=== PATIENT | female | born 1970 | race Caucasian/White ===

== ENCOUNTER 2024-03-10 15:45 | Inpatient (IN) | payer OTHER, SELFPAY ==
[2024-03-10 11:35] VITALS: BP 103/70
[2024-03-10 11:57] LABS: % Basophils 0.4 % (0-2); % Eosinophils 1.1 % (0-6); % Immature Granulocytes 0.3 % (0-0.5); % Lymphocytes 16.7 % (20.5-51.1); % Monocytes 4.7 % (1.7-9.3); % Neutrophils 76.8 % (42.2-75.2); Absolute Eosinophils 0.1 10^3/uL (0-0.7); Absolute Lymphocytes 1.6 10^3/uL (1.2-3.4); Absolute Monocytes 0.4 10^3/uL (0.1-0.6); Absolute Neutrophils 7.2 10^3/uL (1.4-6.5); Hematocrit 39.5 % (37.0-47.0); Hemoglobin 13.6 g/dL (12.0-16.0); Mean Corp Hgb Conc. 34.4 g/dL (33.0-37.0); Mean Corpuscular Hgb 30.4 pg (27.0-31.0); Mean Corpuscular Volume 88.2 fL (81.0-99.0); Mean Platelet Volume 8.9 fL (7.4-10.4); Nucleated Red Blood Cells % 0 %; Platelet Count 271 10^3/uL (130-400); Red Blood Cell Count 4.48 10^6/uL (4.20-5.40); Red Cell Dist. Width 12.4 % (11.5-14.5); White Blood Cell Count 9.4 10^3/uL (4.8-10.8)
[2024-03-10 12:11] LABS: ALT (SGPT) 77 U/L (0-35); APTT 24.3 Sec (23.4-35.0); AST (SGOT) 117 U/L (14-36); Albumin 4.3 g/dl (3.5-5.0); Alkaline Phosphatase 89 U/L (38-126); Blood Urea Nitrogen 12 mg/dl (7-17); Calcium 10.2 mg/dl (8.4-10.2); Carbon Dioxide 28 mmol/L (22-30); Chloride 102 mmol/L (98-107); Glucose 161 mg/dl (70-99); INR 0.89; Lipase 144 U/L (23-300); PT 12.6 Sec (11.4-14.6); Potassium 3.9 mmol/L (3.5-5.1); Sodium 141 mmol/L (135-145); Total Bilirubin 1.1 mg/dl (0.2-1.3); Total Protein 6.9 g/dl (6.3-8.2); eGFR > 60.00
[2024-03-10 12:22] LABS: Troponin I < 0.012 ng/ml
[2024-03-10 12:41] VITALS: BP 102/55
[2024-03-10 12:44] VITALS: BMI 29.2
[2024-03-10 13:00] VITALS: BP 113/67
--- NOTE | 2024-03-10 13:20 | ED.GENMED ---
History of Present Illness
General
Chief Complaint: Chest Pain
Time Seen by Provider: 03/10/24 12:40
History of Present Illness
History of Present Illness:
53-year-old female with history of GERD presenting to the emergency department for chest pain and upper abdominal pain. Patient reports symptoms since this morning. Does report 1 episode of vomiting. Pain is described as burning. Notes that she
has been taking a lot of ibuprofen because she recently had knee surgery. Denies any abdominal surgeries. Denies any alcohol usage. Denies fever. Denies any history of cardiac disease. Denies difficulty breathing. Denies complaints. She
has not tried any medications for her symptoms. Denies additional acute medical complaints
Past History
Past History
ED Past Medical History: Valvular disease (Mitral valve prolapse)
ED Past Surgical History: Appendectomy and (X2)
Social History
Tobacco: Non-smoker
Alcohol: None
Drug: None
Personal:
Living: with family
Employment: Employed
Family History
Family History: Other (Noncontributory)
Phy Exam
Physical Exam
Physical Exam:
General: Well-appearing, no clinical signs of dehydration, nontoxic and in no acute distress
HEENT: protecting airway
Neck: appears supple
CV: Normal heart rate, regular rhythm
Resp: No accessory muscle use, no increased work of breathing
Abd: Soft and non-distended, focal tenderness to the epigastric and right upper quadrant without rebound or guarding
Extremities: No deformities, no swelling, no erythema, pulses and sensation intact
Neuro: alert, no focal neurologic deficit
: deferred
Rectal: deferred
Psych: Normal affect
Skin: Intact
Scores
Heart Score for Chest Pain Patients
STEMI patient?: Not applicable
Course
Orders/Labs/Results
Orders:
Orders
03/10/24 11:34
Electrocardiogram (*1) Urgent
Reason for Study: Chest Pain
EKG- Treatment ONCE
03/10/24 11:45
Complete Blood Count/With Diff Urgent
Comprehensive Metabolic Panel Urgent
Lipase Urgent
Protime/PTT Urgent
Troponin I Urgent
03/10/24 13:09
Famotidine [Pepcid] 20 mg IV NOW STA
Ketorolac [Toradol] 15 mg IV NOW STA
Ondansetron Injectable [Zofran] 4 mg IV NOW STA
US Abdomen Complete/Upper Urgent
Comment:
Reason For Exam: RUQ pain
03/10/24 15:39
Admit/Transfer Patient As Directed
Co-Sign Provider:
Level of Care: Inpatient admission
Assign to:: Medical/Surgical
Physician / Group: brenton
Diagnosis: gallstones
Reason for Hospitalization: gallstones
Expected length of stay greater than two midnights?: Yes
ELOS- Estimated Length of Stay in days: 3
I certify the patient meets the requirements for IP care: Yes
PRN Pain Medication Management As Directed
May give lesser potent ordered pain med per pt: Yes
preference::
Protocol:: Medication orders for pain may be administered in a
manner that supports deferring to patient preference
when the pt is:
- Requesting an ordered lesser potent pain medication.
Least to most potent pain medications are defined
as: acetaminophen < NSAID < tramadol < opioids
(morphine, oxycodone, hydromorphone).
- Requesting a lesser dose of the same medication IF
ORDERED.
- Requesting a less intrusive route of administration
if both routes are prescribed by the provider (PO <
IV).
03/10/24 15:40
Code Status As Directed
Resuscitation Status: Full Code
03/10/24 17:30
0.9% Sodium Chloride 1000 ml [Nss] 1,000 ml IV 100 mls/hr
HYDROmorphone [Dilaudid] 0.5 mg IV Q4HPRN PRN
Ibuprofen [Motrin] 400 mg PO Q6HPRN PRN
Ondansetron Injectable [Zofran] 4 mg IV Q6HPRN PRN
03/10/24 17:30
SURGICAL CONSULT Routine
Consulting Provider: Giuseppe Aguilar
Was physician already notified: Yes
Activity As Directed
Activity Level: As Tolerated
Vital Signs As Directed
Frequency: Per unit guidelines
DX Deep Vein Thrombosis Video Routine
03/10/24 18:00
Enoxaparin Sodium [Lovenox] 40 mg SC QPM
03/11/24 06:43
Complete Blood Count/No Diff IN AM
Comprehensive Metabolic Panel IN AM
03/11/24 15:33
MR Abdomen W/o & W Contrast Urgent
Reason For Exam: elevated LFTs, abd pain, dilated bile duct, gallst
Recent pill cam endoscopy?: No
03/12/24 06:00
Complete Blood Count/No Diff IN AM
Comprehensive Metabolic Panel IN AM
03/13/24 06:00
Complete Blood Count/No Diff IN AM
Comprehensive Metabolic Panel IN AM
03/14/24 06:00
Complete Blood Count/No Diff IN AM
Comprehensive Metabolic Panel IN AM
03/15/24 06:00
Complete Blood Count/No Diff IN AM
Comprehensive Metabolic Panel IN AM
Abnormal Lab Results
03/10/24
11:45
Absolute Neuts (auto) 7.2 H 10^3/uL
(1.4-6.5)
Neutrophils % 76.8 H %
(42.2-75.2)
Lymphocytes % 16.7 L %
(20.5-51.1)
Glucose 161 H mg/dl
(70-99)
AST 117 H U/L
(14-36)
ALT 77 H U/L
(0-35)
03/10/24 11:45
03/10/24 11:45
Vital Signs
Initial and Last Documented VS:
Initial Vital Signs
Temp Pulse Resp BP Pulse Ox
98.2 F 77 18 103/70 99
03/10/24 11:35 03/10/24 11:35 03/10/24 11:35 03/10/24 11:35 03/10/24 11:35
Last Documented Vital Signs
Temp Pulse Resp BP Pulse Ox
98.6 F 79 18 123/66 97
03/12/24 03:22 03/12/24 03:22 03/12/24 03:22 03/12/24 03:22 03/12/24 03:22
MDM/Problems Addressed
MDM/Problems Addressed:
53-year-old female with history of GERD presenting for chest pain and upper abdominal pain since this morning. Vital signs on arrival are normal.
On exam, patient resting comfortably, no acute distress, nontoxic. Regarding component of chest pain, EKG obtained, nonischemic. Patient without significant cardiac risk factors, without present concern for ACS. Patient with reproducible pain to
the epigastric quadrant with more likely differentials of GERD versus gastritis versus cholelithiasis versus cholecystitis versus pancreatitis. She has had increased ibuprofen, which may be causing gastric inflammation. Patient had laboratory
analysis prior to my assessment, no leukocytosis, normal lipase. Patient does have a mild transaminitis, denies alcohol usage. This reason we will obtain right upper quadrant ultrasound imaging. Will administer Pepcid, Zofran
15:15 -patient is reporting some symptom improvement after therapeutics. Ultrasound shows gallstones with sludge, at this time concerning for acute cholecystitis. However there is also mention of dilated CBD. Cannot rule out choledocholithiasis.
Will plan for admission for MRCP and surgical consultation
*Critical Care Note
Total Time (30-74mins, 75-104mins- exclusive of procedures): Not Applicable
ED Attending Note
-
Portions of this chart may have been created with voice recognition software.� Occasional wrong word or��sound alike� substitutions may have occurred due to the inherent limitations of voice recognition software.
Discharge Plan
Departure
Patient Disposition: Admit
Date of Disposition: 03/10/24
Time of Disposition: 15:17
Presentation/result/management discussed w/ accepting MD/DO: Hospitalist
Patient with high blood pressure during this ER visit?: No
Condition: Good
Discharge Problem:
Cholelithiasis, Transaminitis
Interventions
Interventions:
*Risk Screen - Suicide Last Done: 03/10/24 11:35
*General Assessment Last Done: 03/10/24 11:35
*Neglect/Abuse Screening Last Done: 03/10/24 11:35
ED- Fall Risk Assessment Last Done: 03/10/24 12:44
*ED COVID-19 Vaccine History Last Done: 03/10/24 11:35
*Nursing Disposition Last Done: 03/10/24 17:38
ED- Cardiac Assessment Last Done: 03/10/24 12:44
Discharge Date and Time
Discharge Date/Time: 03/10/24 17:38
[2024-03-10] MEDS: ZOFRAN 4 MG IV (13:24)
[2024-03-10] MEDS: TORADOL 15 MG IV (13:24)
[2024-03-10] MEDS: PEPCID 20 MG IV (13:25)
--- NOTE | 2024-03-10 15:19 | HPS.HSE ---
Family Physician
-
Family Physician: Mc Chaparro MD
Chief Complaint
-
mid upper abdominal chest pain
History of Present Illness
53-year-old female with history of GERD presenting to the emergency department for midchest pain and upper abdominal pain since this morning.she vomited 3 times. she had couple loose stools as well. denied fever, chills, sob. denied dysuria or
hematuria.
US with the impression of biliary sludge and calculi. Transient positive sonographic Hernandes's sign, though without gallbladder wall thickening or pericholecystic fluid to confirm acute cholecystitis.
Mild distention of the common bile duct, 7 mm.
Fatty infiltration of liver.
Medical History
Past Medical History
Past Medical History: Reports None
Past Surgical History: Reports Other
Additional Past Surgical History:
right meniscus repair
Social History
Tobacco: Non-smoker
Drug: None
Living: With Family
Family History
Family History: Not pertinent
Allergies / Home Medications
Allergies reflects when Allergies were last updated in [facility].
Home Medications with original date entered in [facility]
Allergy/Medication List:
Allergies
Allergy/AdvReac Type Severity Reaction Status Date / Time
No Known Allergies Allergy Verified 08/03/20 19:34
Home Medications
multivitamin 1 ea PO DAILY 08/03/20
Review of Systems
-
Constitutional: Reports No Symptoms
EENT: Reports No Symptoms
Respiratory: Reports No Symptoms
Cardiac: Reports Chest Pain
Abdomen/GI: Reports Abdominal Pain
: Reports No Symptoms
Musculoskeletal: Reports No Symptoms
Skin: Reports No Symptoms
Neurological: Reports No Symptoms
Endocrine: Reports No Symptoms
Hematologic/Lymphatic: Reports No Symptoms
Psych: Reports No Symptoms
Physical Exam
Vital Signs
Vital Signs
Temp Pulse Resp BP Pulse Ox
98.2 F 84 16 113/67 99
03/10/24 11:35 03/10/24 13:30 03/10/24 13:30 03/10/24 13:00 03/10/24 13:30
Physical Exam
General: Well Developed, Well Nourished and No Apparent Distress
HEENT: NormoCephalic, Moist mucous membranes and Atraumatic
Respiratory: Clear
Cardiac: S1/S2 and Regular Rhythm; No Murmur or Rub
GI: Soft, Non Tender, Non Distended and Normal Bowel Sounds; No Organomegaly
Rectal: Deferred by Provider
Musculoskeletal: No Clubbing, No Cyanosis and No Edema
Skin: No Rash
Neuro: AO x 3 and Nonfocal/grossly intact
Psych: Calm
Laboratory Results
-
03/10/24 11:45
03/10/24 11:45
Laboratory Results
PT 12.6 Sec (11.4-14.6) 03/10/24 11:45
INR 0.89 03/10/24 11:45
APTT 24.3 Sec (23.4-35.0) 03/10/24 11:45
Total Bilirubin 1.1 mg/dl (0.2-1.3) 03/10/24 11:45
AST 117 U/L (14-36) H 03/10/24 11:45
ALT 77 U/L (0-35) H 03/10/24 11:45
Alkaline Phosphatase 89 U/L (38-126) 03/10/24 11:45
Troponin I < 0.012 ng/ml 03/10/24 11:45
Lipase 144 U/L (23-300) 03/10/24 11:45
Data Reviewed
-
Diagnostic Radiology: Report Reviewed by me
Lab Data: Labs Reviewed by me
Impression/Plan
-
# Upper abdominal pain/vomiting likely from gallstones
-AST 117, ALT 77
-Ultrasound biliary sludge and calculi. Transient positive sonographic Hernandes's sign, though without gallbladder wall thickening or pericholecystic fluid to confirm acute cholecystitis.Mild distention of the common bile duct, 7 mm.
Fatty infiltration of liver.
-MRCP
-Keep patient n.p.o.
-Trend LFTs
-fluids continued for hydration
-Dilaudid prn for pain
-Zofran prn for n/v
-surgery consulted
#DVT prophylaxis
-Lovenox
#CODE status
-full code
--- NOTE | 2024-03-10 15:36 | CON.GS ---
Medical History
-
Chief Complaint: Substernal chest pain, nausea vomiting
History of Present Illness:
Patient is a 53-year-old female who was in her usual baseline state of health until she awoke today and began noticing substernal chest discomfort that she thought was heartburn/indigestion. It continued to increase in severity and developed into a
bandlike chest pressure and tightness. She had some coffee but symptoms became worse. She observed them throughout the day but they persisted and she began to develop some abdominal discomfort and tenderness. After her son finished school she
came in for emergency department evaluation due to persistent symptoms. Rather immediately after presenting to the ER she developed acute onset of vomiting and associated abdominal pain.
After getting antiemetic, pain medicine and antacid she is feeling much better now.
No similar episodes in the past.
Past Medical History
Past Medical History: Other (Right knee meniscus tear, possible fracture; history of mitral valve prolapse)
Past Surgical History: Other (Appendectomy, x 2)
Social History
Tobacco: Non-Smoker
Alcohol: None
Personal:
Living: With Family
Employment: Employed
Family History
Family History: Reviewed & Not Pertinent
Allergies / Home Medications
Allergy/AdvReac Type Severity Reaction Status Date / Time
No Known Allergies Allergy Verified 08/03/20 19:34
�Medication �Instructions �Recorded �Confirmed �Type
multivitamin 1 ea PO DAILY 08/03/20 08/03/20 History
Review of Systems
-
History Source: Patient
All other systems: Negative unless noted
A 10 point review of systems was completed, and was negative except as per HPI.
Physical Exam
Vital Signs
Temp Pulse Resp BP Pulse Ox
98.2 F 84 16 113/67 99
03/10/24 11:35 03/10/24 13:30 03/10/24 13:30 03/10/24 13:00 03/10/24 13:30
03/09/24 03/10/24 03/11/24
06:59 06:59 06:59
Actual Weight 70 kg
Body Mass Index (BMI) 29.2
Lab Results
03/10/24 11:45
03/10/24 11:45
WBC 9.4 10^3/uL (4.8-10.8) 03/10/24 11:45
Hgb 13.6 g/dL (12.0-16.0) 03/10/24 11:45
Hct 39.5 % (37.0-47.0) 03/10/24 11:45
Plt Count 271 10^3/uL (130-400) 03/10/24 11:45
Abs Immat Gran (auto) 0.0 10^3/uL (0-0.05) 03/10/24 11:45
Neutrophils % 76.8 % (42.2-75.2) H 03/10/24 11:45
Physical Exam
General: Well Developed, Well Nourished, No Apparent Distress and Comfortable
HEENT: Normocephalic, Anicteric and Moist Mucous Membranes
Respiratory: Non Labored Respirations
Cardiac: Regular Rhythm
GI: Soft, Non Distended, Tender (Upper abdominal and central. No rebound, no rigidity, no guarding) and Other (Right lower quadrant appendectomy scar, scar)
Skin: Warm
Neuro: AO x 3
Psych: Calm
Data Reviewed
-
Ultrasound: Image Personally Visualized and interpreted, Report Reviewed by me, Discussed with Patient and Discussed with Family
Labs: Labs Reviewed by me, Discussed with Patient and Discussed with Family
Assessment / Plan
-
Assessment: 53-year-old female with suspected acute biliary colic, possible acute cholecystitis; dilated common bile duct on ultrasound imaging with elevated AST and ALT.
Patient history ultrasound imaging results differential diagnosis as listed above and additional possible choledocholithiasis.
Given biliary ductal dilation and mild elevation of LFTs recommended obtaining MRI imaging to evaluate for choledocholithiasis
We discussed typical pathophysiology of gallstone mediated disease and indications for cholecystectomy as well as treatment of choledocholithiasis if identified on MR imaging.
Plan: Urgent MRI ordered as results this evening would facilitate timing of treatment plan
Hospice evaluating for admission
Would cover biliary source empirically with antibiotics
Further surgical recommendations pending MRI results
--- NOTE | 2024-03-10 16:35 | W.PN.UPDATE ---
Update Note
Progress Note Update
This is an addendum to the H&P written by Allyssa Marroquin on 03/10/2024. Patient seen and examined independently with [employer] INS[employer].
53-year-old female past medical history of asthma, GERD presenting with epigastric pain later with right upper quadrant and left upper quadrant pain and vomiting earlier today.
Labs show mild transaminitis. Abdominal ultrasound shows biliary sludge and calculi. There is transient positive sonographic Hernandes sign.
Concern for possible cholecystitis versus choledocholithiasis. N.p.o. Zosyn. Pain control/nausea control. General surgery consulted. Check MRCP.
[2024-03-10 17:43] VITALS: BP 126/72
[2024-03-10] MEDS: LOVENOX 40 MG SC (18:05)
[2024-03-10] MEDS: ZOSYN 50 IV ×2 (18:05→23:02)
[2024-03-10] MEDS: NSS 1000 IV (18:05)
[2024-03-10 23:33] VITALS: BP 134/75
[2024-03-11] VITALS (12 sets, daily range): BP systolic 0–143; BP diastolic 65–80
[2024-03-11] MEDS: DILAUDID 0.5 MG IV ×4 (01:11→21:30)
[2024-03-11] MEDS: NSS 1000 IV (04:45)
[2024-03-11] MEDS: ZOSYN 50 IV ×4 (05:38→23:36)
[2024-03-11 07:10] LABS: Hematocrit 40.1 % (37.0-47.0); Hemoglobin 13.3 g/dL (12.0-16.0); Mean Corp Hgb Conc. 33.2 g/dL (33.0-37.0); Mean Corpuscular Hgb 30.4 pg (27.0-31.0); Mean Corpuscular Volume 91.6 fL (81.0-99.0); Platelet Count 258 10^3/uL (130-400); Red Blood Cell Count 4.38 10^6/uL (4.20-5.40); Red Cell Dist. Width 12.7 % (11.5-14.5); White Blood Cell Count 5.4 10^3/uL (4.8-10.8)
[2024-03-11 08:00] LABS: ALT (SGPT) 360 U/L (0-35); AST (SGOT) 276 U/L (14-36); Albumin 4.2 g/dl (3.5-5.0); Alkaline Phosphatase 98 U/L (38-126); Blood Urea Nitrogen 10 mg/dl (7-17); Calcium 9.2 mg/dl (8.4-10.2); Carbon Dioxide 29 mmol/L (22-30); Chloride 103 mmol/L (98-107); Estimated Creatinine Clearance 74 ml/min; Glucose 90 mg/dl (70-99); Potassium 3.7 mmol/L (3.5-5.1); Sodium 141 mmol/L (135-145); Total Bilirubin 1.3 mg/dl (0.2-1.3); Total Protein 6.7 g/dl (6.3-8.2); eGFR > 60.00
[2024-03-11] MEDS: ZOFRAN 4 MG IV (08:19)
--- NOTE | 2024-03-11 08:21 | W.PN.GS2 ---
Addendum entered and electronically signed by Giuseppe Aguilar MD 03/11/24 14:45:
Patient seen and examined in follow-up with MANAGER [employer]. Agree with documented progress note.
Continues with right upper quadrant tenderness but nausea has subsided.
AFVSS
NAD AAOx3
ABD: Soft, tenderness palpation epigastrium right upper quadrant with voluntary guarding
MRI completed. Images personally reviewed as well as radiologist report. Cholelithiasis, sludge, gallbladder distention and edema with wall thickening. All consistent with acute calculus cholecystitis. Possible stones or small stones in common
bile duct.
Assessment/plan: 53-year-old female with acute calculus cholecystitis and possible choledocholithiasis
Given gallbladder distention and inflammatory changes and persistent right upper quadrant pain recommended pursuing laparoscopic cholecystectomy for definitive management of gallbladder with intraoperative cholangiogram as if there is only sludge or
tiny stones they may flush out with cholangiography.
Anticipated operative procedure was fully reviewed in detail the patient preoperatively obtaining written informed consent
Original Note:
Today's Communication / Plan
-
MRCP
Assessment / Plan
-
53 yo female with biliary colic vs cholecystitis vs choledocholithiasis with ongoing RUQ discomfort.
Bilirubin trending up, no leukocytosis
AFVSS
--MRCP to determine treatment plan pending
--Continue empiric abx
--Analgesics antiemetics
--Medical care as per hospitalist
Subjective Data
-
Date of Service: March 11, 2024
Patient seen and examined at bedside. Pain present and requesting pain medications. No n/v. No fevers.
Objective Data
-
Intake and Output
03/10/24 03/11/24 03/12/24
06:59 06:59 06:59
Intake Total 1100 / 1100
Balance 1100 / 1100
Intake:
IV fluids (Total) 1000 / 1000
IV piggybacks 100 / 100
Other:
Number of approximated MODERATE 2
amounts of urine
Vital Signs
Temp Pulse Resp BP Pulse Ox
98.6 F 82 18 124/72 96
03/11/24 08:09 03/11/24 08:09 03/11/24 08:09 03/11/24 08:09 03/11/24 08:09
Lab Results
03/11/24 06:43
03/11/24 06:43
Calcium 9.2 mg/dl (8.4-10.2) 03/11/24 06:43
Total Bilirubin 1.3 mg/dl (0.2-1.3) 03/11/24 06:43
AST 276 U/L (14-36) H 03/11/24 06:43
ALT 360 U/L (0-35) H 03/11/24 06:43
Alkaline Phosphatase 98 U/L (38-126) 03/11/24 06:43
Total Protein 6.7 g/dl (6.3-8.2) 03/11/24 06:43
Albumin 4.2 g/dl (3.5-5.0) 03/11/24 06:43
Physical Exam
-
NAD
ABD soft, RUQ tender, ND
--- NOTE | 2024-03-11 13:21 | CM ---
Patient seen at bedside. Patient states that she lives with her 2 children ages 17/16 in a 3 story home. Patient stated that she has no DME other than crutches and a walker. Patient uses the Crutches only. Patient PCP is Dr. Patton, and uses the
[facility] in [place]. Patient requested information about POA/Advanced directives and information provided. Patient plan is for home with no needs. Patient is planning for a second opinion for her knee surgery after discharge. CM will continue
to follow for discharge planning needs.
Plan; home with no needs anticipated at this time. watch for VN request
--- NOTE | 2024-03-11 14:45 | W.SUR.PREOP ---
Pre-Operative Surgical Note
-
I have examined this patient prior to the performance of the scheduled procedure.
The patient's condition is unchanged from the time of the current History and
Physical and the patient is able to undergo the scheduled procedure.
--- NOTE | 2024-03-11 15:51 | W.PN.HOSP.TC ---
Today's Communication/Plan
-
see note
Assessment / Plan
Assessment / Plan
1. Acute cholecystitis
Questionable choledocholithiasis
Elevated liver enzyme
-Patient present for right upper quadrant abdominal pain with nausea
-ER evaluation showing elevated LFT, normal bilirubin
-Ultrasound showing gallbladder which/tone with positive Hernandes sign
-Follow-up MRI MRCP showing changes of cholecystitis with questionable small choledocholithiasis
-Patient evaluated by general surgery and getting laparoscopic cholecystectomy
-Maintain on as needed pain medication
2. Right lower extremity weakness
Right knee arthroscopic procedure earlier this year
-Per patient post arthroscopy patient developed new right lower extremity weakness and unable to use RLE
-Has been evaluated by primary surgeon testing has been negative in the past
-Patient waiting evaluation by different physician on Mar
-Continue PT/OT post operatively
Lovenox
Full code
Total time spent : 52 mins
Anticipated Discharge: Within 24 hours
Subjective/Interval History
-
Date of Service: March 11, 2024
have RUQ pain/tenderness
some nausea/no vomiting
Objective Data
-
Labs:
Laboratory Results
03/11/24
06:43
WBC 5.4
Hgb 13.3
Hct 40.1
Plt Count 258
Sodium 141
Potassium 3.7
Chloride 103
Carbon Dioxide 29
BUN 10
Creatinine 0.8
Glucose 90
Calcium 9.2
Total Bilirubin 1.3
AST 276 H
ALT 360 H
Alkaline Phosphatase 98
Vital Signs:
Vital Signs
Temp Pulse Resp BP Pulse Ox
98.6 F 82 18 124/72 96
03/11/24 08:09 03/11/24 08:09 03/11/24 08:09 03/11/24 08:09 03/11/24 08:09
I&O
03/10/24 03/11/24 03/12/24
06:59 06:59 06:59
Intake Total 1099
Balance 1099
Review of Systems
-
Respiratory: Reports No Symptoms
Cardiac: Reports No Symptoms
Abdomen/GI: Reports Abdominal Pain; Denies Nausea or Vomiting
Physical Exam
-
General: No Apparent Distress and Comfortable
HEENT: Negative Oxygen
Respiratory: Clear to Auscultation
Cardiac: Regular Rhythm and S1/S2; Negative Murmur or Rub
GI: Soft, Nondistended, Normal Bowel Sounds and Tender (RUQ)
Musculoskeletal: No Edema
Neuro: Awake, Alert, Oriented, No Motor Deficits and Nonfocal/Grossly Intact
Psych: Calm
--- NOTE | 2024-03-11 17:13 | W.IMMPOSTOP ---
Surgical Immed Post Op Note
-
Primary Surgeon: Lauren
Assisting Surgeon: Thomas DANIELSON
Pre-op Diagnosis: Acute calculus cholecystitis
Post-op Diagnosis: Acute calculus cholecystitis and suspected choledocholithiasis
Procedure Performed: Laparoscopic cholecystectomy with intraoperative cholangiogram
Anesthesia Type: GETA +0.25% Marcaine
Specimen / Cultures: Gallbladder/none
Estimated Blood Loss: 6 mL
Complications: None immediate
Operative Findings: Tensely distended gallbladder with wall thickening and edema and numerous gallstones. Cystic duct and artery identified with critical view of safety and controlled with hemoclips. Intraoperative cholangiogram confirming dilated
biliary tree and what appeared to be either abrupt angulation or cut off of the distal common bile duct with delayed and slow contrast opacification of the duodenum. There was retrograde filling into the pancreatic duct. Suspicious for
choledocholithiasis with partial obstruction. Cholecystectomy otherwise completed uneventfully without disruption of gallbladder.
Drains: 19 Edmundo drain left in the subhepatic space postoperatively due to suspicion for choledocholithiasis with partial biliary obstruction as this would place pressure on the cystic duct stump.
Telephone call to patient's son updating him postoperatively of operative findings and plan for GI evaluation postoperatively
[2024-03-11] MEDS: LOVENOX 40 MG SC (18:20)
--- NOTE | 2024-03-11 18:50 | CON.MD ---
Documented by User: Alisha Pulido PA-C 03/14/24 19:41
Consultation - Medical
-
Referring Provider: Dr. Londono,
Chief Complaint: Debility
History of Present Illness: 53-year-old female with history of (GERD,asthma) presented to the emergency department on 03/10 with epigastric pain later with right upper quadrant and left upper quadrant pain and vomiting earlier today. Labs showed
mild transaminitis.U/S of abdomen with Sludge and multiple calculi noted measuring up to 5 mm. No gallbladder wall thickening. No pericholecystic fluid. The patient initially had discomfort overlying the gallbladder with transducer pressure,
consistent with positive sonographic Hernandes's sign, though improved during the course of the exam.
MRI of Abdomen-03/11: Cholelithiasis and biliary sludge. Findings consistent with acute cholecystitis. Suspect common bile duct intraluminal sludge and/or small stones. Mild proximal common bile duct dilatation.
Surgery -Given gallbladder distention and inflammatory changes and persistent right upper quadrant pain recommended pursuing laparoscopic cholecystectomy for definitive management of gallbladder with intraoperative cholangiogram as if there is only
sludge or tiny stones they may flush out with cholangiography.
She underwent laparoscopic cholecystectomy on 03/11. -HIDA scan negative for any intra ductal abnormality.-PAVEL drain have output of 70ml sero-sanguinous fluid. LFT trending down. ALT 289/AST 94. max value of 475/275 respectively this admit. T
brayan Normal. Antibiotic changed to Unasyn as no clinical concern of any drug-resistant organism.
Right lower extremity weakness- Had Right knee arthroscopic procedure 09/17. Says was active wih OP PT, but regressing functionally in regards to pain and decreased ROM. She was discharged from therapy and was referred for a second orthopedic
opinion.. Reports to have had EMG last month and has been having electrical shocks since. Says EMG was unremarkable.
-Has been evaluated by primary surgeon testing has been negative in the past. Patient awaiting evaluation by Dr. Tor Cheng at [facility] on April 07.
-Continue PT/OT post operatively
Past Medical History: GERD, asthma
Procedure History: right meniscus repair
Family History: non contributory
Social History:
Functional Level Premorbidly: Independent with all activities
Functional Level Currently: Bed mobility�min assist, transfer�supervision,Ambulated 5 feet forward without assistant cook device holding onto furniture then 80 feet with rolling walker and supervision/mod I. She walk in reciprocal, steady gait, right
lower extremity stable in stance phase with use of rolling walker.
Tobacco: Denies
Alcohol: Denies
Drug use: Denies
Lives with: family
24-hour assistance available:
Number of floors: multi level
# steps to enter:
# steps to second floor:
Potential First floor set up:
Driving: yes
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
Allergies:
Allergy/AdvReac Type Severity Reaction Status Date / Time
No Known Allergies Allergy Verified 08/03/20 19:34
Review of Systems:
Constitutional: (x) Normal _
Eye: (x) Normal _
Ear/Nose/Throat: (x) Normal _
Respiratory: (x) Normal _
Cardiovascular: (x) Normal _
Gastrointestinal: (x) abdominal pain, cholecystitis
Genitourinary: (x) Normal _
Musculoskeletal: (x) Right knee pain, right leg weakness
Integumentary: (x) Normal _
Neurologic: (x) Normal _
Psychiatric: (x) Normal _
Endocrine: (x) Normal _
Hematologic/Lymphatic: (x) Normal _
Allergic/Immunologic: (x) Normal _
Medications:
Active Current Visit Medication List
Category Date Time Status
0.9% Sodium Chloride 1000 ml [Nss] 1,000 ml Med 03/10/24 17:30 Active
IV 100 mls/hr
Enoxaparin Sodium [Lovenox] Med 03/10/24 18:00 Active
40 mg SC QPM
Flush (0.9% Sodium Chloride) [Flush (Nss)] Med 03/10/24 18:00 Active
See Dose Instructions IV PER PROTOCOL
HYDROmorphone [Dilaudid] Med 03/11/24 12:09 Active
0.25 mg IV PACU-Q5MPRN PRN
HYDROmorphone [Dilaudid] Med 03/11/24 14:19 Active
0.25 mg IV PACU-Q5MPRN PRN
HYDROmorphone [Dilaudid] Med 03/11/24 12:09 Active
0.5 mg IV PACU-Q5MPRN PRN
HYDROmorphone [Dilaudid] Med 03/11/24 14:19 Active
0.5 mg IV PACU-Q5MPRN PRN
HYDROmorphone [Dilaudid] Med 03/10/24 17:30 Active
0.5 mg IV Q4HPRN PRN
Ibuprofen [Motrin] Med 03/10/24 17:30 Active
400 mg PO Q6HPRN PRN
Meperidine [Demerol] Med 03/11/24 12:09 Active
12.5 mg IV PACU-Q5MPRN PRN
Meperidine [Demerol] Med 03/11/24 14:19 Active
12.5 mg IV PACU-Q5MPRN PRN
Ondansetron Injectable [Zofran] Med 03/11/24 12:09 Active
4 mg IV PACU-ONCEPRN PRN
Ondansetron Injectable [Zofran] Med 03/11/24 14:19 Active
4 mg IV PACU-ONCEPRN PRN
Ondansetron Injectable [Zofran] Med 03/10/24 17:30 Active
4 mg IV Q6HPRN PRN
Piperacillin/Tazo 3.375 Gram [Zosyn] Med 03/10/24 18:00 Active
3.375 gram in 50 ml IV Q6H
Prochlorperazine [Compazine] Med 03/11/24 12:09 Active
5 mg IV PACU-ONCEPRN PRN
Prochlorperazine [Compazine] Med 03/11/24 14:19 Active
5 mg IV PACU-ONCEPRN PRN
Vitals:
Temp Pulse Resp BP Pulse Ox
98.6 F 82 18 124/72 96
03/11/24 08:09 03/11/24 08:09 03/11/24 08:09 03/11/24 08:09 03/11/24 08:09
Height 5 ft 1 in
Actual Weight 70 kg
Body Mass Index (BMI) 29.2
Physical Exam:
General Appearance/Observation: Well-developed, well-nourished individual in no apparent distress.
Pain/Comfort Assessment: Denies
Mood/Affect: Appropriate
Integumentary/Operative Site:
Pressure Ulcer Evaluation: absent over heels.
Other Type of Wound:ecchymosis abdomen
Eyes: Conjunctiva/Lids: normal Pupils: pupils equal round
Ears/Nose/Throat: oral mucosa moist, throat clear. Lips/Teeth/Gums: normal
Neck: No muscle spasm or tenderness
Cardiovascular: Heart: regular, no murmur
Pulses: dorsalis pedis 2+ bilaterally
Respiratory: Respiratory Effort/Chest Expansion: normal Auscultation: Clear to auscultation bilaterally
Gastrointestinal: abdomen tender RUQ, no distension, normal abdominal bowel sounds
Genitourinary: No Murphy
Extremities: Edema: right knee edema Cyanosis: None Trophic changes: None
Neurology Exam:
Orientation: Alert, Oriented to self, Time, Place
Memory: Intact for immediate medical concerns
Comprehension: Intact
Two step command: Intact
Cranial Nerves:
CNII: Pupillary light reflex: Intact Visual Field: Intact
CN III, IV, : Extraocular muscles: Intact
CN VII: Facial movement: Symmetric
CN VIII: Hearing: Normal
CN IX/X: Speech & swallow: Normal, Position of Uvula: Midline
CN XI: Shoulder shrug: Symmetric
Sensory:
Light touch: Intact in bilateral upper and lower extremities
Reflexes:
Biceps: 2+ bilaterally
Brachioradialis: 2+ bilaterally
Triceps: 2+ bilaterally
Patellar: 2+ bilaterally
Achilles: trace bilaterally
Musculoskeletal:
Motor: (Manual muscle scale 0-5)
Muscle: Muscle SA EF WE EE FF FA HF KE DF EHL PF
Right� 5 5 5 5 5 2 2 5 5 5
Left 5 5 5 5 5 5 5 5 5 5
�
Tone: Normal in all extremities
Range of Motion: Passively within normal limits in all extremities
Lab Results:
Labs
WBC 4.7 10^3/uL (4.8-10.8) L 03/14/24 07:24
RBC 4.00 10^6/uL (4.20-5.40) L 03/14/24 07:24
Hgb 12.2 g/dL (12.0-16.0) 03/14/24 07:24
Hct 37.1 % (37.0-47.0) 03/14/24 07:24
MCV 92.8 fL (81.0-99.0) 03/14/24 07:24
MCH 30.5 pg (27.0-31.0) 03/14/24 07:24
MCHC 32.9 g/dL (33.0-37.0) L 03/14/24 07:24
RDW 12.9 % (11.5-14.5) 03/14/24 07:24
Plt Count 209 10^3/uL (130-400) 03/14/24 07:24
MPV 9.0 fL (7.4-10.4) 03/14/24 07:24
Abs Immat Gran (auto) 0.0 10^3/uL (0-0.05) 03/10/24 11:45
Absolute Neuts (auto) 7.2 10^3/uL (1.4-6.5) H 03/10/24 11:45
Absolute Lymphs (auto) 1.6 10^3/uL (1.2-3.4) 03/10/24 11:45
Absolute Monos (auto) 0.4 10^3/uL (0.1-0.6) 03/10/24 11:45
Absolute Eos (auto) 0.1 10^3/uL (0-0.7) 03/10/24 11:45
Absolute Basos (auto) 0.0 10^3/uL (0-0.2) 03/10/24 11:45
Immature Gran % 0.3 % (0-0.5) 03/10/24 11:45
Neutrophils % 76.8 % (42.2-75.2) H 03/10/24 11:45
Lymphocytes % 16.7 % (20.5-51.1) L 03/10/24 11:45
Monocytes % 4.7 % (1.7-9.3) 03/10/24 11:45
Eosinophils % 1.1 % (0-6) 03/10/24 11:45
Basophils % 0.4 % (0-2) 03/10/24 11:45
Nucleated RBC % 0 % 03/10/24 11:45
PT 12.6 Sec (11.4-14.6) 03/10/24 11:45
INR 0.89 03/10/24 11:45
APTT 24.3 Sec (23.4-35.0) 03/10/24 11:45
Sodium 138 mmol/L (135-145) 03/14/24 07:24
Potassium 3.6 mmol/L (3.5-5.1) 03/14/24 07:24
Chloride 101 mmol/L (98-107) 03/14/24 07:24
Carbon Dioxide 30 mmol/L (22-30) 03/14/24 07:24
BUN 10 mg/dl (7-17) 03/14/24 07:24
Creatinine 0.6 mg/dL (0.6-1.0) 03/14/24 07:24
Estimated Creat Clear 98 ml/min 03/14/24 07:24
eGFR > 60.00 03/14/24 07:24
Glucose 92 mg/dl (70-99) 03/14/24 07:24
Calcium 8.6 mg/dl (8.4-10.2) 03/14/24 07:24
Total Bilirubin 0.9 mg/dl (0.2-1.3) 03/14/24 07:24
AST 94 U/L (14-36) H 03/14/24 07:24
ALT 289 U/L (0-35) H 03/14/24 07:24
Alkaline Phosphatase 102 U/L (38-126) 03/14/24 07:24
Troponin I < 0.012 ng/ml 03/10/24 11:45
Total Protein 5.9 g/dl (6.3-8.2) L 03/14/24 07:24
Albumin 3.5 g/dl (3.5-5.0) 03/14/24 07:24
Lipase 108 U/L (23-300) 03/14/24 07:24
Diagnostic Results: as per HPI
Assessment: 53-year-old female with acute calculus cholecystitis and possible choledocholithiasis due to undergoes laparoscopic cholecystectomy for definitive management of gallbladder with intraoperative cholangiogram
Given gallbladder distention and inflammatory changes and persistent right upper quadrant pain s/p laparoscopic cholecystectomy. Patient also with right lower extremity weakness s/p right arthroscopic surgery. To see ortho OP for second opinion.
Plan
PT/OT to increase independence with ADLs, improve balance, coordination, endurance, strength, mobility, community reintegration, decreased burden of care on others and family education.
Right knee pain/Weakness: Cont PT/OT. Ice pack as needed. Follow up OP with ortho for further evaluation and testing. Per patient EMG has been done and was essentially unremarkable.
abdominal pain/s/p cholecystectomy: pain control, cont antibiotics
Psych: Psychology consult. Monitor mood, adjust medications as needed.
Skin: monitor for pressure sores/rashes/lesions.
Pain: acetaminophen, as needed, oxycodone 5mg, 10mg q 4 hours prn
Bowel: Colace and Senna, PRN bisacodyl.
Bladder: Time void, PVRs, PRN straight cath.
GI Prophylaxis: Pantoprazole
DVT Prophylaxis: Mechanical and Lovenox
Pulmonary: Incentive spirometry
Safety: Continue to reinforce assistance with all transfers.
Code Status: Full code
Dispo (date/plan/equipment needs): Home with family care. Social history reviewed.
Functional and Medical Goals: Modified Independent with ADL�s, ambulation, transfers
Discharge Destination: Home with Outpatient PT/OT
Summary of recommendations: Patient would benefit from a second opinion from an marketing support specialist for evaluation of right lower extremity weakness status post right knee arthroscopic surgery since per patient previous work up as been negative
and EMG already done was unremarkable.
Right knee pain/Weakness: Cont PT/OT. Ice pack as needed. Follow up OP with ortho for further evaluation and testing. Per patient EMG has been done and was essentially unremarkable. Could try gabapentin for 'electrical' shocks.
abdominal pain/s/p cholecystectomy: pain control, cont antibiotics
Pain: acetaminophen, as needed, oxycodone 5mg, 10mg q 4 hours prn
Bowel: Colace and Senna, PRN bisacodyl.
Thank you for allowing me to care for your patient. Please contact me with any questions or concerns.

Documented by User: Shankar Gandara MD 03/14/24 19:59
Consultation - Medical
-
Referring Provider: Dr. Bryson Londono
Chief Complaint: Debility
History of Present Illness: 53-year-old female with history of (GERD,asthma) presented to the emergency department on 03/10 with epigastric pain later with right upper quadrant and left upper quadrant pain and vomiting earlier today. Labs showed
mild transaminitis.U/S of abdomen with Sludge and multiple calculi noted measuring up to 5 mm. No gallbladder wall thickening. No pericholecystic fluid. The patient initially had discomfort overlying the gallbladder with transducer pressure,
consistent with positive sonographic Hernandes's sign, though improved during the course of the exam.
MRI of Abdomen-03/11: Cholelithiasis and biliary sludge. Findings consistent with acute cholecystitis. Suspect common bile duct intraluminal sludge and/or small stones. Mild proximal common bile duct dilatation.
Surgery -Given gallbladder distention and inflammatory changes and persistent right upper quadrant pain recommended pursuing laparoscopic cholecystectomy for definitive management of gallbladder with intraoperative cholangiogram as if there is only
sludge or tiny stones they may flush out with cholangiography.
She underwent laparoscopic cholecystectomy on 03/11. -HIDA scan negative for any intra ductal abnormality.-PAVEL drain have output of 70ml sero-sanguinous fluid. LFT trending down. ALT 289/AST 94. max value of 475/275 respectively this admit. T
brayan Normal. Antibiotic changed to Unasyn as no clinical concern of any drug-resistant organism.
Right lower extremity weakness- Had Right knee arthroscopic procedure 09/17. Says was active with OP PT, but regressing functionally in regards to pain and decreased ROM. She was discharged from therapy and was referred for a second orthopedic
opinion. Reports to have had EMG last month and has been having electrical shocks since. Says EMG was unremarkable.
-Has been evaluated by primary surgeon testing has been negative in the past. Patient awaiting evaluation by Dr. Tor Cheng at [facility] on April 07.
-Continue PT/OT post operatively
Past Medical History: GERD, asthma
Procedure History: right meniscus repair
Family History: non contributory
Social History:
Functional Level Premorbidly: Independent with all activities
Functional Level Currently: Bed mobility�min assist, transfer�supervision,Ambulated 5 feet forward without assistant cook device holding onto furniture then 80 feet with rolling walker and supervision/mod I. She walk in reciprocal, steady gait, right
lower extremity stable in stance phase with use of rolling walker.
Tobacco: Denies
Alcohol: Denies
Drug use: Denies
Lives with: family
Number of floors: 3 level
Driving: yes
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
Allergies:
Allergy/AdvReac Type Severity Reaction Status Date / Time
No Known Allergies Allergy Verified 08/03/20 19:34
Review of Systems:
Constitutional: (x) abNormal _fatigue
Eye: (x) Normal _
Ear/Nose/Throat: (x) Normal _
Respiratory: (x) Normal _
Cardiovascular: (x) Normal _
Gastrointestinal: (x) abdominal pain, cholecystitis
Genitourinary: (x) Normal _
Musculoskeletal: (x) Right knee pain, right leg weakness, trouble bedning it
Integumentary: (x) Normal _
Neurologic: (x) abNormal _having electric shocks in the leg since the EMG, did not have prior
Psychiatric: (x) Normal _
Endocrine: (x) Normal _
Hematologic/Lymphatic: (x) Normal _
Allergic/Immunologic: (x) Normal _
Medications:
Active Current Visit Medication List
Category Date Time Status
0.9% Sodium Chloride 1000 ml [Nss] 1,000 ml Med 03/10/24 17:30 Active
IV 100 mls/hr
Enoxaparin Sodium [Lovenox] Med 03/10/24 18:00 Active
40 mg SC QPM
Flush (0.9% Sodium Chloride) [Flush (Nss)] Med 03/10/24 18:00 Active
See Dose Instructions IV PER PROTOCOL
HYDROmorphone [Dilaudid] Med 03/11/24 12:09 Active
0.25 mg IV PACU-Q5MPRN PRN
HYDROmorphone [Dilaudid] Med 03/11/24 14:19 Active
0.25 mg IV PACU-Q5MPRN PRN
HYDROmorphone [Dilaudid] Med 03/11/24 12:09 Active
0.5 mg IV PACU-Q5MPRN PRN
HYDROmorphone [Dilaudid] Med 03/11/24 14:19 Active
0.5 mg IV PACU-Q5MPRN PRN
HYDROmorphone [Dilaudid] Med 03/10/24 17:30 Active
0.5 mg IV Q4HPRN PRN
Ibuprofen [Motrin] Med 03/10/24 17:30 Active
400 mg PO Q6HPRN PRN
Meperidine [Demerol] Med 03/11/24 12:09 Active
12.5 mg IV PACU-Q5MPRN PRN
Meperidine [Demerol] Med 03/11/24 14:19 Active
12.5 mg IV PACU-Q5MPRN PRN
Ondansetron Injectable [Zofran] Med 03/11/24 12:09 Active
4 mg IV PACU-ONCEPRN PRN
Ondansetron Injectable [Zofran] Med 03/11/24 14:19 Active
4 mg IV PACU-ONCEPRN PRN
Ondansetron Injectable [Zofran] Med 03/10/24 17:30 Active
4 mg IV Q6HPRN PRN
Piperacillin/Tazo 3.375 Gram [Zosyn] Med 03/10/24 18:00 Active
3.375 gram in 50 ml IV Q6H
Prochlorperazine [Compazine] Med 03/11/24 12:09 Active
5 mg IV PACU-ONCEPRN PRN
Prochlorperazine [Compazine] Med 03/11/24 14:19 Active
5 mg IV PACU-ONCEPRN PRN
Vitals:
Temp Pulse Resp BP Pulse Ox
98.6 F 82 18 124/72 96
03/11/24 08:09 03/11/24 08:09 03/11/24 08:09 03/11/24 08:09 03/11/24 08:09
Height 5 ft 1 in
Actual Weight 70 kg
Body Mass Index (BMI) 29.2
Physical Exam:
General Appearance/Observation: Well-developed, well-nourished female in mild abdominal distress.
Pain/Comfort Assessment: abdominal pain, right knee
Mood/Affect: Appropriate
Integumentary/Operative Site: ecchymosis abdomen
Eyes: Conjunctiva/Lids: normal Pupils: pupils equal round
Ears/Nose/Throat: oral mucosa moist, throat clear. Lips/Teeth/Gums: normal
Cardiovascular: Heart: regular, no murmur
Pulses: dorsalis pedis 2+ bilaterally
Respiratory: Respiratory Effort/Chest Expansion: normal Auscultation: Clear to auscultation bilaterally
Gastrointestinal: abdomen tender RUQ, no distension, normal abdominal bowel sounds
Genitourinary: No Murphy
Extremities: Edema: slight right knee edema Cyanosis: None Trophic changes: None
Neurology Exam:
Orientation: Alert, Oriented to self, Time, Place
Memory: Intact for immediate medical concerns
Comprehension: Intact
Two step command: Intact
Cranial Nerves:
CNII: Pupillary light reflex: Intact
CN III, IV, : Extraocular muscles: Intact
CN VII: Facial movement: Symmetric
CN VIII: Hearing: Normal
CN IX/X: Speech & swallow: Normal, Position of Uvula: Midline
CN XI: Shoulder shrug: Symmetric
Sensory:
Light touch: Intact in bilateral upper and lower extremities
Reflexes:
Biceps: 2+ bilaterally
Brachioradialis: 2+ bilaterally
Triceps: 2+ bilaterally
Patellar: 2+ bilaterally
Achilles: trace bilaterally
Musculoskeletal: Motor: (Manual muscle scale 0-5)
Muscle: Muscle SA EF WE EE FF FA HF KE DF EHL PF
Right� 5 5 5 5 5 2 2 5 5 5
Left 5 5 5 5 5 5 5 5 5 5
Tone: Normal in all extremities
Range of Motion: Passively within normal limits in all extremities
Lab Results:
Labs
WBC 4.7 10^3/uL (4.8-10.8) L 03/14/24 07:24
RBC 4.00 10^6/uL (4.20-5.40) L 03/14/24 07:24
Hgb 12.2 g/dL (12.0-16.0) 03/14/24 07:24
Hct 37.1 % (37.0-47.0) 03/14/24 07:24
MCV 92.8 fL (81.0-99.0) 03/14/24 07:24
MCH 30.5 pg (27.0-31.0) 03/14/24 07:24
MCHC 32.9 g/dL (33.0-37.0) L 03/14/24 07:24
RDW 12.9 % (11.5-14.5) 03/14/24 07:24
Plt Count 209 10^3/uL (130-400) 03/14/24 07:24
MPV 9.0 fL (7.4-10.4) 03/14/24 07:24
Abs Immat Gran (auto) 0.0 10^3/uL (0-0.05) 03/10/24 11:45
Absolute Neuts (auto) 7.2 10^3/uL (1.4-6.5) H 03/10/24 11:45
Absolute Lymphs (auto) 1.6 10^3/uL (1.2-3.4) 03/10/24 11:45
Absolute Monos (auto) 0.4 10^3/uL (0.1-0.6) 03/10/24 11:45
Absolute Eos (auto) 0.1 10^3/uL (0-0.7) 03/10/24 11:45
Absolute Basos (auto) 0.0 10^3/uL (0-0.2) 03/10/24 11:45
Immature Gran % 0.3 % (0-0.5) 03/10/24 11:45
Neutrophils % 76.8 % (42.2-75.2) H 03/10/24 11:45
Lymphocytes % 16.7 % (20.5-51.1) L 03/10/24 11:45
Monocytes % 4.7 % (1.7-9.3) 03/10/24 11:45
Eosinophils % 1.1 % (0-6) 03/10/24 11:45
Basophils % 0.4 % (0-2) 03/10/24 11:45
Nucleated RBC % 0 % 03/10/24 11:45
PT 12.6 Sec (11.4-14.6) 03/10/24 11:45
INR 0.89 03/10/24 11:45
APTT 24.3 Sec (23.4-35.0) 03/10/24 11:45
Sodium 138 mmol/L (135-145) 03/14/24 07:24
Potassium 3.6 mmol/L (3.5-5.1) 03/14/24 07:24
Chloride 101 mmol/L (98-107) 03/14/24 07:24
Carbon Dioxide 30 mmol/L (22-30) 03/14/24 07:24
BUN 10 mg/dl (7-17) 03/14/24 07:24
Creatinine 0.6 mg/dL (0.6-1.0) 03/14/24 07:24
Estimated Creat Clear 98 ml/min 03/14/24 07:24
eGFR > 60.00 03/14/24 07:24
Glucose 92 mg/dl (70-99) 03/14/24 07:24
Calcium 8.6 mg/dl (8.4-10.2) 03/14/24 07:24
Total Bilirubin 0.9 mg/dl (0.2-1.3) 03/14/24 07:24
AST 94 U/L (14-36) H 03/14/24 07:24
ALT 289 U/L (0-35) H 03/14/24 07:24
Alkaline Phosphatase 102 U/L (38-126) 03/14/24 07:24
Troponin I < 0.012 ng/ml 03/10/24 11:45
Total Protein 5.9 g/dl (6.3-8.2) L 03/14/24 07:24
Albumin 3.5 g/dl (3.5-5.0) 03/14/24 07:24
Lipase 108 U/L (23-300) 03/14/24 07:24
Diagnostic Results: as per HPI
Assessment:
53-year-old female with acute calculus cholecystitis and possible choledocholithiasis due to undergoes laparoscopic cholecystectomy for definitive management of gallbladder with intraoperative cholangiogram
Given gallbladder distention and inflammatory changes and persistent right upper quadrant pain s/p laparoscopic cholecystectomy. Patient also with right lower extremity weakness s/p right arthroscopic surgery. To see ortho OP for second opinion.
Plan:
PT/OT to increase independence with ADLs, improve balance, coordination, endurance, strength, mobility, community reintegration, decreased burden of care on others and family education.
Right knee pain/Weakness: Cont PT/OT. Ice pack as needed. Follow up OP with ortho for further evaluation and testing. Per patient EMG has been done and was essentially unremarkable. She feels she has done all that she can.
abdominal pain/s/p cholecystectomy: pain control, cont antibiotics per GI
Pain: acetaminophen, as needed, oxycodone 5mg, 10mg q 4 hours prn
Bowel: Colace and Senna, PRN bisacodyl.
Bladder: Time void, PVRs, PRN straight cath.
GI Prophylaxis: Pantoprazole
DVT Prophylaxis: Mechanical and Lovenox
Pulmonary: Incentive spirometry
Safety: Continue to reinforce assistance with all transfers.
Code Status: Full code
Dispo (date/plan/equipment needs): Home with family care. Social history reviewed.
Functional and Medical Goals: Modified Independent with ADL�s, ambulation, transfers
Discharge Destination: Home with Outpatient PT/OT
Summary of recommendations: Patient would benefit from a second opinion from an marketing support specialist for evaluation of right lower extremity weakness status post right knee arthroscopic surgery since per patient previous work up as been negative
and EMG already done was unremarkable.
Right knee pain/Weakness: Cont PT/OT. Ice pack as needed. Follow up OP with ortho for further evaluation and testing. Per patient EMG has been done and was essentially unremarkable. Could try gabapentin for 'electrical' shocks.
abdominal pain/s/p cholecystectomy: pain control, cont antibiotics
Pain: acetaminophen, as needed, oxycodone 5mg, 10mg q 4 hours prn
Bowel: Colace and Senna, PRN bisacodyl.
Thank you for allowing me to care for your patient. Please contact me with any questions or concerns.
[2024-03-12] MEDS: DILAUDID 0.5 MG IV ×3 (01:32→13:30)
[2024-03-12] MEDS: NSS 1000 IV (01:33)
[2024-03-12] MEDS: NSS IV ×2 (01:34→13:30)
[2024-03-12 03:22] VITALS: BP 123/66
[2024-03-12] MEDS: ZOSYN 50 IV ×3 (05:33→17:31)
[2024-03-12 06:39] LABS: Hematocrit 38.3 % (37.0-47.0); Hemoglobin 12.4 g/dL (12.0-16.0); Mean Corp Hgb Conc. 32.4 g/dL (33.0-37.0); Mean Corpuscular Volume 92.7 fL (81.0-99.0); Mean Platelet Volume 9.2 fL (7.4-10.4); Platelet Count 243 10^3/uL (130-400); Red Blood Cell Count 4.13 10^6/uL (4.20-5.40); Red Cell Dist. Width 12.6 % (11.5-14.5); White Blood Cell Count 7.2 10^3/uL (4.8-10.8)
[2024-03-12 07:00] VITALS: BP 153/92
[2024-03-12 07:05] LABS: ALT (SGPT) 475 U/L (0-35); AST (SGOT) 266 U/L (14-36); Albumin 3.8 g/dl (3.5-5.0); Alkaline Phosphatase 113 U/L (38-126); Blood Urea Nitrogen 7 mg/dl (7-17); Calcium 8.7 mg/dl (8.4-10.2); Carbon Dioxide 23 mmol/L (22-30); Chloride 103 mmol/L (98-107); Estimated Creatinine Clearance 98 ml/min; Glucose 116 mg/dl (70-99); Potassium 3.8 mmol/L (3.5-5.1); Sodium 140 mmol/L (135-145); Total Bilirubin 0.7 mg/dl (0.2-1.3); Total Protein 6.5 g/dl (6.3-8.2); eGFR > 60.00
--- NOTE | 2024-03-12 07:36 | CON.GI ---
Addendum entered and electronically signed by Zulema Reynolds DO 03/12/24 10:02:
Discussion with Dr. Aguilar over [place] text -if Thursday morning HIDA is okay and PAVEL drain is clean and labs stay normal with a normal bilirubin and alkaline phosphatase can likely pull drain and send her home with future MRCP or EUS
Original Note:
Consultation
-
Date/Time Consultation Requested: 03/11/24
Date/Time Consultation Performed: 03/12/2024
Requesting Provider: Dr. Aguilar
Performing Provider: Dr. Reynolds
Reason for Consultation: concern for CBD obstruction
Medical History
Chief Complaint / HPI
Chief Complaint: Chest pain nausea vomiting
History of Present Illness:
Josseline is a 53-year-old female with no significant past medical history was admitted on 03/10/2024 for substernal chest pain then progressed to more epigastric pain and tenderness then nausea and vomiting. Suspected biliary colic surgery was
called. On ultrasound she had a dilated common bile duct and possible acute cholecystitis with hepatocellular injury on liver enzymes. Due to this she underwent an MRI to evaluate for choledocholithiasis. MRI was performed on 03/11/2024 showing
cholelithiasis, biliary sludge with acute cholecystitis and suspected bile duct intraluminal sludge or small stones with mild proximal common bile duct dilation. Her total bilirubin and alkaline phosphatase were within normal limits the entire
time. During her cholecystectomy she underwent IOC. Dr. Aguilar was unable to thread a wire through the distal common bile duct concerning for distal common bile duct choledocholithiasis. This morning 03/12/2024 her CBC is normal with no
leukocytosis. Total bilirubin has been within normal limits yesterday was its peak at 1.3. Continues with the hepatocellular picture with an AST of 266 and ALT of 475 with an alkaline phosphatase of 113 also normal. Lipase 144. Liver enzymes in
2020 were normal but were elevated back in 2018.
Past Medical History
Past Medical History: Other (History of mitral valve prolapse otherwise healthy)
Past Surgical History: Other (Appendectomy, x 2)
Social History
Tobacco: Non-Smoker
Alcohol: None
Personal: (Patient is and has 3 children at home ranging from 16 to early 20s)
Living: With Family
Employment: Employed
Allergies / Home Medications
Allergy/AdvReac Type Severity Reaction Status Date / Time
No Known Allergies Allergy Verified 08/03/20 19:34
�Medication �Instructions �Recorded
calcium carbonate (Tums) 400 mg PO DAILYPRN PRN indigestion 03/10/24
ibuprofen-diphenhydramine citrate 1 cap PO HS sleep 03/10/24
200 mg-38 mg tablet (Advil PM)
multivitamin with minerals-folic 1 tab PO DAILY Supplement 03/10/24
acid 80 mcg chewable tablet
Review of Systems
-
Constitutional: Reports Weight Loss (Intentional 10 pound weight loss)
EENT: Reports No Symptoms
Cardiac: Reports No Symptoms
: Reports No Symptoms
Vital Signs
Temp Pulse Resp BP Pulse Ox
98.6 F 79 18 123/66 97
03/12/24 03:22 03/12/24 03:22 03/12/24 03:22 03/12/24 03:22 03/12/24 03:22
Physical Exam
Exam
General: Well Nourished
HEENT: Anicteric
GI: Soft and Tender (Appropriately tender in the right upper quadrant but soft)
Neuro: AO x 3
Psych: Calm
Results
WBC 7.2 10^3/uL (4.8-10.8) 03/12/24 05:34
Hgb 12.4 g/dL (12.0-16.0) 03/12/24 05:34
Hct 38.3 % (37.0-47.0) 03/12/24 05:34
MCV 92.7 fL (81.0-99.0) 03/12/24 05:34
Plt Count 243 10^3/uL (130-400) 03/12/24 05:34
Absolute Neuts (auto) 7.2 10^3/uL (1.4-6.5) H 03/10/24 11:45
PT 12.6 Sec (11.4-14.6) 03/10/24 11:45
INR 0.89 03/10/24 11:45
APTT 24.3 Sec (23.4-35.0) 03/10/24 11:45
Sodium 140 mmol/L (135-145) 03/12/24 05:34
Potassium 3.8 mmol/L (3.5-5.1) 03/12/24 05:34
Chloride 103 mmol/L (98-107) 03/12/24 05:34
Carbon Dioxide 23 mmol/L (22-30) 03/12/24 05:34
BUN 7 mg/dl (7-17) 03/12/24 05:34
Creatinine 0.6 mg/dL (0.6-1.0) 03/12/24 05:34
Calcium 8.7 mg/dl (8.4-10.2) 03/12/24 05:34
Total Bilirubin 0.7 mg/dl (0.2-1.3) 03/12/24 05:34
AST 266 U/L (14-36) H 03/12/24 05:34
ALT 475 U/L (0-35) H 03/12/24 05:34
Alkaline Phosphatase 113 U/L (38-126) 03/12/24 05:34
Lipase 144 U/L (23-300) 03/10/24 11:45
Diagnostic Image Results:
Prior GI Procedures:
EGD:
Colonoscopy:
Assessment / Plan
-
Josseline is a 53-year-old female otherwise healthy comes in with biliary colic and hepatocellular injury underwent laparoscopic cholecystectomy on 03/11/2024 with an MRI with questionable common bile duct sludge versus stones with an IOC that was
unable to cannulate the distal CBD. Therefore GI was called by surgery
# Questionable likely distal common bile duct stones versus sludge/obstruction
-- Based on the MRI plus the inability to thread the wire into the distal common bile duct she likely has some type of obstruction in the distal common bile duct
-- Her bilirubin and alkaline phosphatase have been normal the entire time
-- She has no leukocytosis or fever
-- Plan for HIDA early Thursday morning and if still consistent with distal common bile duct obstruction would proceed to EUS/ERCP versus ERCP pending results
-- Reviewed Lauren's operative findings which include tensely distended gallbladder with wall thickening and edema with numerous gallstones. Suspicious for choledocholithiasis with partial obstruction. Edmundo drain left in postoperatively since a
CBD obstruction with placed pressure on the cystic duct stump and increased risk for leak
Data Reviewed
-
Ultrasound: Report Reviewed by me
MRI: Image Personally Visualized and interpreted and Report Reviewed by me
-
-
Thank you for consultation and allowing me to participate in the patient's care. Please call the personal property assessor GI physician during the after hours with any questions or concerns.
[2024-03-12 11:50] VITALS: BP 124/72
--- NOTE | 2024-03-12 12:16 | W.PN.GS2 ---
Addendum entered and electronically signed by Aguila Rodrigez MD 03/12/24 14:19:
No overnight events. Denies N/V, passing flatus, no BMs. Pain controlled.
AFVSS, ABD soft, nondistended, appropriately tender near incisions and drain; incisions well-approximated without erythema or drainage
WBC 7.2, T. bili 0.7, LFTs 266/475, CR 0.6
� Appreciate GI for ERCP secondary to positive intraoperative cholangiogram; plan for HIDA on Thursday
� Okay for low-fat diet, n.p.o. Thursday at midnight
� Continue pain control
� Continue IV Zosyn until confirmation of duct clearance
-Cont PAVEL until HIDA
� Appreciate hospitalist
Original Note:
Today's Communication / Plan
-
Low fat diet
Assessment / Plan
-
53 yo female with acute cholecystitis and possible choledocholithiasis now POD #1 lap nicki
MRCP with ?sludge within the CBD and unable to cannulate CBD in OR for IOC suspicious for choledocholithiasis with partial obstruction; however, bilirubin wnl. Mild transaminitis
No leukocytosis
AFVSS
PAVEL with nonbilious SSF
--Trend labs
--Gastroenterology following with us. Plan for HIDA on Thursday and tentative ERCP pending patient progress/findings
--Continue empiric abx
--Analgesics/antiemetics as needed
--Ok to trial on low fat diet, will make NPo after MN thursday for testing
--C/W PAVEL, pending patient course, may be able to remove prior to d/c
--Medical care as per hospitalist
Subjective Data
-
Date of Service: March 12, 2024
Patient seen and examined at bedside with Dr. Rodrigez. Tender to RUQ and incisions. Denies nausea. Passing flatus.
Objective Data
-
Intake and Output
03/11/24 03/12/24 03/13/24
06:59 06:59 06:59
Intake Total 1100 / 1100 1380 / 1380
Output Total
Balance 1100 / 1100 1370 / 1370
Intake:
Oral fluids 480 / 480
IV fluids (Total) 1000 / 1000 800 / 800
IV piggybacks 100 / 100 100 / 100
Output:
Drain Output (Total)
Right Middle Abdomen Marshall-
Glez A
Other:
Number of approximated MODERATE 2
amounts of urine
Vital Signs
Temp Pulse Resp BP Pulse Ox
98.5 F 84 16 153/92 97
03/12/24 07:00 03/12/24 07:00 03/12/24 07:00 03/12/24 07:00 03/12/24 07:00
Lab Results
03/12/24 05:34
03/12/24 05:34
Calcium 8.7 mg/dl (8.4-10.2) 03/12/24 05:34
Total Bilirubin 0.7 mg/dl (0.2-1.3) 03/12/24 05:34
AST 266 U/L (14-36) H 03/12/24 05:34
ALT 475 U/L (0-35) H 03/12/24 05:34
Alkaline Phosphatase 113 U/L (38-126) 03/12/24 05:34
Total Protein 6.5 g/dl (6.3-8.2) 03/12/24 05:34
Albumin 3.8 g/dl (3.5-5.0) 03/12/24 05:34
Physical Exam
-
NAD
ABD soft, tender to incisions/ruq mildly tender, ND
Incisions clear, dry, intact
PAVEL with darker SSF
--- NOTE | 2024-03-12 14:54 | W.PN.HOSP.TC ---
Today's Communication/Plan
-
adjust pain medication
monitor PAVLE drain output
maintain empiric abx
adjust pain medication
Assessment / Plan
Assessment / Plan
1. Acute cholecystitis
Questionable choledocholithiasis
Elevated liver enzyme
-Patient present for right upper quadrant abdominal pain with nausea
-ER evaluation showing elevated LFT, normal bilirubin
-Ultrasound showing gallbladder which/tone with positive Hernandes sign
-Follow-up MRI MRCP showing changes of cholecystitis with questionable small choledocholithiasis
-Patient underwent laparoscopic cholecystectomy on 03/11.
-GI involved in care as intraoperatively concern of patient possibly having small and passed CBD stone. GI plan to do an HIDA scan on Thursday with follow-up EUS/ERCP if needed
-Maintain on as needed pain medication
2. Right lower extremity weakness
Right knee arthroscopic procedure earlier this year
-Per patient post arthroscopy patient developed new right lower extremity weakness and unable to use RLE
-Has been evaluated by primary surgeon testing has been negative in the past
-Patient waiting evaluation by different physician on Mar
-Continue PT/OT post operatively
Lovenox
Full code
Anticipated Discharge: > 48 hours
Subjective/Interval History
-
Date of Service: March 12, 2024
have some RUQ discomfort
no nausea/vomiting
Objective Data
-
Labs:
Laboratory Results
03/12/24
05:34
WBC 7.2
Hgb 12.4
Hct 38.3
Plt Count 243
Sodium 140
Potassium 3.8
Chloride 103
Carbon Dioxide 23
BUN 7
Creatinine 0.6
Glucose 116 H
Calcium 8.7
Total Bilirubin 0.7
AST 266 H
ALT 475 H
Alkaline Phosphatase 113
Vital Signs:
Vital Signs
Temp Pulse Resp BP Pulse Ox
98.1 F 83 16 124/72 95
03/12/24 11:50 03/12/24 11:50 03/12/24 11:50 03/12/24 11:50 03/12/24 11:50
I&O
03/11/24 03/12/24 03/13/24
06:59 06:59 06:59
Intake Total 1100 / 1100 1380 / 1380
Output Total
Balance 1100 / 1100 1370 / 1370
Review of Systems
-
Respiratory: Reports No Symptoms
Cardiac: Reports No Symptoms
Abdomen/GI: Reports No Symptoms
Physical Exam
-
General: No Apparent Distress and Comfortable
HEENT: Negative Oxygen
Respiratory: Clear to Auscultation
Cardiac: Regular Rhythm and S1/S2; Negative Murmur or Rub
GI: Soft, Nondistended, Normal Bowel Sounds, Tender (RUQ) and Other (RUQ Pavel drain with sanguinous drainage)
Musculoskeletal: No Edema
Neuro: Awake, Alert, Oriented, No Motor Deficits and Nonfocal/Grossly Intact
Psych: Calm
[2024-03-12 15:00] VITALS: BP 135/54
[2024-03-12] MEDS: ROXICODONE 10 MG PO (16:22)
[2024-03-12] MEDS: LOVENOX 40 MG SC (17:31)
[2024-03-12 19:00] VITALS: BP 137/74
[2024-03-12] MEDS: ROXICODONE 5 MG PO (21:32)
[2024-03-12 23:45] VITALS: BP 127/68
[2024-03-13] MEDS: ZOSYN 50 IV ×5 (00:04→23:27)
[2024-03-13] MEDS: DILAUDID 0.5 MG IV (00:05)
[2024-03-13 03:16] VITALS: BP 136/85
[2024-03-13 06:53] LABS: Hematocrit 37.2 % (37.0-47.0); Hemoglobin 11.9 g/dL (12.0-16.0); Mean Corpuscular Hgb 30.1 pg (27.0-31.0); Mean Corpuscular Volume 93.9 fL (81.0-99.0); Mean Platelet Volume 9.2 fL (7.4-10.4); Platelet Count 223 10^3/uL (130-400); Red Blood Cell Count 3.96 10^6/uL (4.20-5.40); White Blood Cell Count 5.1 10^3/uL (4.8-10.8)
[2024-03-13 07:00] VITALS: BP 148/87
[2024-03-13 07:28] LABS: ALT (SGPT) 349 U/L (0-35); AST (SGOT) 130 U/L (14-36); Albumin 3.5 g/dl (3.5-5.0); Alkaline Phosphatase 99 U/L (38-126); Blood Urea Nitrogen 8 mg/dl (7-17); Calcium 8.3 mg/dl (8.4-10.2); Carbon Dioxide 28 mmol/L (22-30); Chloride 104 mmol/L (98-107); Estimated Creatinine Clearance 84 ml/min; Glucose 91 mg/dl (70-99); Potassium 3.6 mmol/L (3.5-5.1); Sodium 141 mmol/L (135-145); Total Bilirubin 0.8 mg/dl (0.2-1.3); eGFR > 60.00
[2024-03-13] MEDS: ROXICODONE 10 MG PO ×3 (07:56→20:37)
--- NOTE | 2024-03-13 13:10 | W.PN.HOSP.TC ---
Today's Communication/Plan
-
for HIDA tomorrow
Assessment / Plan
Assessment / Plan
1. Acute cholecystitis
Questionable choledocholithiasis
Elevated liver enzyme
-Patient present for right upper quadrant abdominal pain with nausea
-ER evaluation showing elevated LFT, normal bilirubin
-Ultrasound showing gallbladder which/tone with positive Hernandes sign
-Follow-up MRI MRCP showing changes of cholecystitis with questionable small choledocholithiasis
-Patient underwent laparoscopic cholecystectomy on 03/11.
-GI involved in care as intraoperatively concern of patient possibly having small and passed CBD stone. GI plan to do an HIDA scan on Thursday with follow-up EUS/ERCP if needed
-Maintain on as needed pain medication
2. Right lower extremity weakness
Right knee arthroscopic procedure earlier this year
-Per patient post arthroscopy patient developed new right lower extremity weakness and unable to use RLE
-Has been evaluated by primary surgeon testing has been negative in the past
-Patient waiting evaluation by different physician on Mar
-Continue PT/OT post operatively
Lovenox
Full code
Anticipated Discharge: 24 - 48 hours
Subjective/Interval History
-
Date of Service: March 13, 2024
continues to have RUQ discomfort/tenderness
PAVEL drain in place
Objective Data
-
Labs:
Laboratory Results
03/13/24
05:56
WBC 5.1
Hgb 11.9 L
Hct 37.2
Plt Count 223
Sodium 141
Potassium 3.6
Chloride 104
Carbon Dioxide 28
BUN 8
Creatinine 0.7
Glucose 91
Calcium 8.3 L
Total Bilirubin 0.8
AST 130 H
ALT 349 H
Alkaline Phosphatase 99
Vital Signs:
Vital Signs
Temp Pulse Resp BP Pulse Ox
98.2 F 82 14 148/87 95
03/13/24 07:00 03/13/24 07:00 03/13/24 07:00 03/13/24 07:00 03/13/24 08:00
I&O
03/12/24 03/13/24 03/14/24
06:59 06:59 06:59
Intake Total 1380 / 1380 1420 / 1420
Output Total
Balance 1370 / 1370 1335 / 1335
Review of Systems
-
Respiratory: Reports No Symptoms
Cardiac: Reports No Symptoms
Abdomen/GI: Reports Abdominal Pain; Denies Nausea or Vomiting
Physical Exam
-
General: No Apparent Distress and Comfortable
HEENT: Negative Oxygen
Respiratory: Clear to Auscultation
Cardiac: Regular Rhythm and S1/S2; Negative Murmur or Rub
GI: Soft, Nondistended, Normal Bowel Sounds, Tender (RUQ) and Other (RUQ Pavel drain with sanguinous drainage)
Musculoskeletal: No Edema
Neuro: Awake, Alert, Oriented, No Motor Deficits and Nonfocal/Grossly Intact
Psych: Calm
[2024-03-13] MEDS: COLACE 100 MG PO ×2 (13:33→20:38)
--- NOTE | 2024-03-13 14:11 | W.PN.GI.CBS2 ---
Today's Communication / Plan
-
-- N.p.o. after midnight for HIDA scan tomorrow
Biliary drain per surgery
Assessment / Plan
-
Josseline is a 53-year-old female otherwise healthy comes in with biliary colic and hepatocellular injury underwent laparoscopic cholecystectomy on 03/11/2024 with an MRI with questionable common bile duct sludge versus stones with an IOC that was
unable to cannulate the distal CBD. Therefore GI was called by surgery
# Questionable likely distal common bile duct stones versus sludge/obstruction
-- Based on the MRI plus the inability to thread the wire into the distal common bile duct she likely has some type of obstruction in the distal common bile duct
-- Her bilirubin and alkaline phosphatase have been normal the entire time
-- She has no leukocytosis or fever
-- Plan for HIDA early Thursday morning and if still consistent with distal common bile duct obstruction would proceed to EUS/ERCP versus ERCP pending results
-- Reviewed Lauren's operative findings which include tensely distended gallbladder with wall thickening and edema with numerous gallstones. Suspicious for choledocholithiasis with partial obstruction. Edmundo drain left in postoperatively since a
CBD obstruction with placed pressure on the cystic duct stump and increased risk for leak
Subjective
Subjective
Date of Service: March 13, 2024
Having pain around the drain site
Objective
Data Reviewed
Laboratory Data:
Laboratory Results
03/13/24 05:56
03/13/24 05:56
Laboratory Results
PT 12.6 Sec (11.4-14.6) 03/10/24 11:45
INR 0.89 03/10/24 11:45
APTT 24.3 Sec (23.4-35.0) 03/10/24 11:45
Total Bilirubin 0.8 mg/dl (0.2-1.3) 03/13/24 05:56
AST 130 U/L (14-36) H 03/13/24 05:56
ALT 349 U/L (0-35) H 03/13/24 05:56
Alkaline Phosphatase 99 U/L (38-126) 03/13/24 05:56
Lipase 144 U/L (23-300) 03/10/24 11:45
Vital Signs and I&O:
Vital Signs
Temp Pulse Resp BP Pulse Ox
98.2 F 82 14 148/87 95
03/13/24 07:00 03/13/24 07:00 03/13/24 07:00 03/13/24 07:00 03/13/24 08:00
I&O
03/12/24 03/13/24 03/14/24
06:59 06:59 06:59
Intake Total 1380 / 1380 1420 / 1420
Output Total 85 / 85
Balance 1370 / 1370 1335 / 1335
Physical Exam
Physical Exam
HEENT: Anicteric
Pulmonary: Clear
GI: Soft and Tender
Extremities: No Edema
Neuro: Non Focal
[2024-03-13 15:00] VITALS: BP 151/79
[2024-03-13] MEDS: LOVENOX 40 MG SC (17:38)
[2024-03-13 23:23] VITALS: BP 138/81
[2024-03-14] MEDS: DILAUDID 0.5 MG IV (00:29)
[2024-03-14] MEDS: ZOSYN 50 IV ×2 (05:52→13:14)
[2024-03-14 06:53] VITALS: BP 127/78
[2024-03-14] MEDS: COLACE 100 MG PO ×2 (08:07→20:39)
[2024-03-14 08:14] LABS: Hematocrit 37.1 % (37.0-47.0); Hemoglobin 12.2 g/dL (12.0-16.0); Mean Corp Hgb Conc. 32.9 g/dL (33.0-37.0); Mean Corpuscular Hgb 30.5 pg (27.0-31.0); Mean Corpuscular Volume 92.8 fL (81.0-99.0); Platelet Count 209 10^3/uL (130-400); Red Cell Dist. Width 12.9 % (11.5-14.5); White Blood Cell Count 4.7 10^3/uL (4.8-10.8)
[2024-03-14 09:00] LABS: ALT (SGPT) 289 U/L (0-35); AST (SGOT) 94 U/L (14-36); Albumin 3.5 g/dl (3.5-5.0); Alkaline Phosphatase 102 U/L (38-126); Blood Urea Nitrogen 10 mg/dl (7-17); Calcium 8.6 mg/dl (8.4-10.2); Carbon Dioxide 30 mmol/L (22-30); Chloride 101 mmol/L (98-107); Estimated Creatinine Clearance 98 ml/min; Glucose 92 mg/dl (70-99); Potassium 3.6 mmol/L (3.5-5.1); Sodium 138 mmol/L (135-145); Total Bilirubin 0.9 mg/dl (0.2-1.3); Total Protein 5.9 g/dl (6.3-8.2); eGFR > 60.00
[2024-03-14 09:43] VITALS: BP 148/66; PULSE 81; O2SAT 95
--- NOTE | 2024-03-14 12:11 | W.PN.GS2 ---
Addendum entered and electronically signed by Nikolas Lopes MD 03/14/24 16:52:
I saw and examined the patient independently.
The Drone Software Development Engineer's note was reviewed and I agree with the note, assessment and plan except where noted below.
Comment: This is a 51-year-old female status post laparoscopic cholecystectomy this past Thursday, IOC suspicious for abnormal distal diverticulum ? Choledochocele, however nonobstructive.
HIDA today was negative.
PAVEL removed at bedside.
Patient follow-up with Dr. Aguilar in 2 to 3 weeks.
Discharge instructions placed, all questions answered. Patient agreeable to plan of care above.
Original Note:
Today's Communication / Plan
-
HIDA
Assessment / Plan
-
53 yo female with acute cholecystitis and possible choledocholithiasis now POD #3 lap nicki
MRCP with ?sludge within the CBD and unable to cannulate CBD in OR for IOC suspicious for choledocholithiasis with partial obstruction; however, bilirubin wnl. Mild transaminitis
No leukocytosis
AFVSS
PAVEL with nonbilious SSF
--Gastroenterology following with us. Plan for HIDA on Thursday and tentative ERCP pending patient progress/findings
--Continue empiric abx
--Analgesics/antiemetics as needed
--NPO for testing
--C/W PAVEL, pending patient course, may be able to remove prior to d/c
--Medical care as per hospitalist
Subjective Data
-
Date of Service: March 14, 2024
Patient seen and examined at bedside with Dr. Lopes. Tender to RUQ. Hurst n/v.
Objective Data
-
Intake and Output
03/13/24 03/14/24 03/15/24
06:59 06:59 06:59
Intake Total 1420 / 1420 860 / 860
Output Total 70 / 70
Balance 1335 / 1335 790 / 790
Intake:
Oral fluids 720 / 720 660 / 660
IV fluids (Total) 500 / 500
IV piggybacks 200 / 200 200 / 200
Output:
Drain Output (Total) 70 / 70
Right Middle Abdomen Marshall-
Glez A
Other:
Number of approximated MODERATE 5 4
amounts of urine
Vital Signs
Temp Pulse Resp BP Pulse Ox
98.8 F 78 18 127/78 95
03/14/24 06:53 03/14/24 06:53 03/14/24 06:53 03/14/24 06:53 03/14/24 06:53
Lab Results
03/14/24 07:24
03/14/24 07:24
Calcium 8.6 mg/dl (8.4-10.2) 03/14/24 07:24
Total Bilirubin 0.9 mg/dl (0.2-1.3) 03/14/24 07:24
AST 94 U/L (14-36) H 03/14/24 07:24
ALT 289 U/L (0-35) H 03/14/24 07:24
Alkaline Phosphatase 102 U/L (38-126) 03/14/24 07:24
Total Protein 5.9 g/dl (6.3-8.2) L 03/14/24 07:24
Albumin 3.5 g/dl (3.5-5.0) 03/14/24 07:24
Physical Exam
-
NAD
ABD soft, tender to incisions/ruq mildly tender, ND
Incisions clear, dry, intact
PAVEL with darker SSF
[2024-03-14 12:45] LABS: Lipase 108 U/L (23-300)
[2024-03-14] MEDS: ROXICODONE 10 MG PO ×2 (13:16→18:38)
--- NOTE | 2024-03-14 14:11 | W.PN.HOSP.TC ---
Today's Communication/Plan
-
see note
Assessment / Plan
Assessment / Plan
1. Acute cholecystitis
Questionable choledocholithiasis
Elevated liver enzyme
-Patient present for right upper quadrant abdominal pain with nausea
-ER evaluation showing elevated LFT, normal bilirubin
-Ultrasound showing gallbladder which/tone with positive Hernandes sign
-Follow-up MRI MRCP showing changes of cholecystitis with questionable small choledocholithiasis
-Patient underwent laparoscopic cholecystectomy on 03/11.
-GI involved in care as intraoperatively concern of patient possibly having small and passed CBD stone.
-HIDA scan negative for any intra ductal abnormality.
-ANTONIO drain have output of 70ml sero-sanguinous fluid.
-LFT trending down. ALT 289/AST 94. max value of 475/275 respectively this admit. T brayan Normal
-Change antibiotic to Unasyn as no clinical concern of any drug-resistant organism.
2. Right lower extremity weakness
Right knee arthroscopic procedure earlier this year
-Per patient post arthroscopy patient developed new right lower extremity weakness and unable to use RLE
-Has been evaluated by primary surgeon testing has been negative in the past
-Patient waiting evaluation by different physician on Mar
-Continue PT/OT post operatively
Lovenox
Full code
Anticipated Discharge: Within 24 hours
Subjective/Interval History
-
Date of Service: March 14, 2024
continues to complain some right upper quadrant abdominal discomfort
No nausea or vomiting
afebrile
Objective Data
-
Labs:
Laboratory Results
03/14/24
07:24
WBC 4.7 L
Hgb 12.2
Hct 37.1
Plt Count 209
Sodium 138
Potassium 3.6
Chloride 101
Carbon Dioxide 30
BUN 10
Creatinine 0.6
Glucose 92
Calcium 8.6
Total Bilirubin 0.9
AST 94 H
ALT 289 H
Alkaline Phosphatase 102
Vital Signs:
Vital Signs
Temp Pulse Resp BP Pulse Ox
98.8 F 78 18 127/78 95
03/14/24 06:53 03/14/24 06:53 03/14/24 06:53 03/14/24 06:53 03/14/24 06:53
I&O
03/13/24 03/14/24 03/15/24
06:59 06:59 06:59
Intake Total 1420 / 1420 860 / 860
Output Total 85 / 85 70 / 70
Balance 1335 / 1335 790 / 790
Review of Systems
-
Respiratory: Reports No Symptoms
Cardiac: Reports No Symptoms
Abdomen/GI: Reports Abdominal Pain; Denies Nausea or Vomiting
Physical Exam
-
General: No Apparent Distress and Comfortable
HEENT: Negative Oxygen
Respiratory: Clear to Auscultation
Cardiac: Regular Rhythm and S1/S2; Negative Murmur or Rub
GI: Soft, Nondistended, Normal Bowel Sounds, Tender (RUQ) and Other (RUQ Antonio drain with sanguinous drainage)
Musculoskeletal: No Edema
Neuro: Awake, Alert, Oriented, No Motor Deficits and Nonfocal/Grossly Intact
Psych: Calm
--- NOTE | 2024-03-14 14:35 | W.PN.GI.CBS2 ---
Addendum entered and electronically signed by Zulema Reynolds DO 03/14/24 15:09:
Patient seen and examined independently of CORPORATE ANALYST. Agree with her note with my additions below
Patient's HIDA scan today was unremarkable with flow into the small bowel which is not consistent with an obstruction.
Her bilirubin and alkaline phosphatase have been normal. Her AST and ALT are trending down.
General Surgery did pull her biliary drain just now. Hopefully that will improve her discomfort.
Okay for diet
GI will sign off
Patient can follow-up outpatient for fatty liver disease found on imaging
Patient will need repeat LFTs as an outpatient in 1 week to ensure it is improving. Follow-up with us as an outpatient in 4 to 8 weeks
Original Note:
Today's Communication / Plan
-
HIDA neg
increase to low fat diet
trend LFT's
if recurrent rise in LFT's consider repeat imaging vs EUS
OP follow up for fatty liver
Assessment / Plan
-
Josseline is a 53-year-old female otherwise healthy comes in with biliary colic and hepatocellular injury underwent laparoscopic cholecystectomy on 03/11/2024 with an MRI with questionable common bile duct sludge versus stones with an IOC that was
unable to cannulate the distal CBD. Therefore GI was called by surgery Reviewed Lauren's operative findings which include tensely distended gallbladder with wall thickening and edema with numerous gallstones. Suspicious for choledocholithiasis
with partial obstruction. Edmundo drain left in postoperatively since a CBD obstruction with placed pressure on the cystic duct stump and increased risk for leak. HIDA neg
# Questionable likely distal common bile duct stones versus sludge/obstruction
-- Based on the MRI plus the inability to thread the wire into the distal common bile duct she likely has some type of obstruction in the distal common bile duct
-- Her bilirubin and alkaline phosphatase have been normal the entire time and AST/ ALT trending down
--- hida neg
-- Will advance diet to low fat
-- She has no leukocytosis or fever
-- if any persistent issue or further rise in LFT's consider EUS
# recent wt loss
# fatty liver on MRI
Subjective
Subjective
Date of Service: March 14, 2024
still with some abdominal pain no stools NPO
Objective
Data Reviewed
Laboratory Data:
Laboratory Results
03/14/24 07:24
03/14/24 07:24
Laboratory Results
PT 12.6 Sec (11.4-14.6) 03/10/24 11:45
INR 0.89 03/10/24 11:45
APTT 24.3 Sec (23.4-35.0) 03/10/24 11:45
Total Bilirubin 0.9 mg/dl (0.2-1.3) 03/14/24 07:24
AST 94 U/L (14-36) H 03/14/24 07:24
ALT 289 U/L (0-35) H 03/14/24 07:24
Alkaline Phosphatase 102 U/L (38-126) 03/14/24 07:24
Lipase 108 U/L (23-300) 03/14/24 07:24
Vital Signs and I&O:
Vital Signs
Temp Pulse Resp BP Pulse Ox
98.8 F 78 18 127/78 95
03/14/24 06:53 03/14/24 06:53 03/14/24 06:53 03/14/24 06:53 03/14/24 06:53
I&O
03/13/24 03/14/24 03/15/24
06:59 06:59 06:59
Intake Total 1420 / 1420 860 / 860
Output Total 85 / 85 70 / 70
Balance 1335 / 1335 790 / 790
Physical Exam
Physical Exam
HEENT: Anicteric and Moist mucous membranes
Cardiology: Normal Sinus Rhythm
Pulmonary: Clear
GI: Soft, Distended (minimal ) and Tender (diffuse upper s/p PAVEL removal prior to exam)
Extremities: No Edema and Other (limited ROM of leg with chronic knee issue )
Neuro: Non Focal
[2024-03-14 15:18] VITALS: BP 138/76
[2024-03-14] MEDS: MIRALAX 17 GRAMS PO (16:10)
[2024-03-14] MEDS: UNASYN IV ×2 (16:10→22:38)
[2024-03-14] MEDS: LOVENOX 40 MG SC (16:17)
[2024-03-14 23:15] VITALS: BP 130/73
[2024-03-15] MEDS: UNASYN IV ×2 (04:30→10:52)
[2024-03-15 08:05] VITALS: BP 141/84
[2024-03-15 08:07] LABS: Hematocrit 38.3 % (37.0-47.0); Hemoglobin 12.7 g/dL (12.0-16.0); Mean Corp Hgb Conc. 33.2 g/dL (33.0-37.0); Mean Corpuscular Hgb 30.7 pg (27.0-31.0); Mean Corpuscular Volume 92.5 fL (81.0-99.0); Mean Platelet Volume 8.9 fL (7.4-10.4); Platelet Count 238 10^3/uL (130-400); Red Blood Cell Count 4.14 10^6/uL (4.20-5.40); Red Cell Dist. Width 12.8 % (11.5-14.5); White Blood Cell Count 5.3 10^3/uL (4.8-10.8)
[2024-03-15 08:15] VITALS: BP 140/89; PULSE 92; O2SAT 95
[2024-03-15 08:48] LABS: ALT (SGPT) 281 U/L (0-35); AST (SGOT) 90 U/L (14-36); Albumin 3.8 g/dl (3.5-5.0); Alkaline Phosphatase 102 U/L (38-126); Blood Urea Nitrogen 8 mg/dl (7-17); Carbon Dioxide 29 mmol/L (22-30); Chloride 102 mmol/L (98-107); Estimated Creatinine Clearance 98 ml/min; Glucose 98 mg/dl (70-99); Sodium 142 mmol/L (135-145); Total Bilirubin 0.6 mg/dl (0.2-1.3); Total Protein 6.4 g/dl (6.3-8.2); eGFR > 60.00
[2024-03-15] MEDS: COLACE 100 MG PO ×2 (08:51→20:18)
[2024-03-15] MEDS: ROXICODONE 10 MG PO ×3 (08:51→20:18)
--- NOTE | 2024-03-15 10:26 | W.PN.SURGUPD ---
Surgical Update
Surgical Update
No changes from a surgical perspective. DC instructions have been updated. No need for further abx from surgical perspective. Call with questions or concerns.
[2024-03-15 14:09] LABS: Urine Albumin Negative (Neg - Trace); Urine Bilirubin Negative (Negative); Urine Character Clear (Clear); Urine Color Yellow; Urine Glucose Negative (Negative); Urine Ketone Negative (Negative); Urine Leukocyte Negative (Negative); Urine Nitrite Negative (Negative); Urine Occult Blood Negative (Negative); Urine Urobilinogen Negative (Neg - 1+)
--- NOTE | 2024-03-15 15:13 | W.PN.HOSP.TC ---
Today's Communication/Plan
-
Possible discharge within 24hrs
pain control
Assessment / Plan
Assessment / Plan
1. Acute cholecystitis
Questionable choledocholithiasis
Elevated liver enzyme
-Patient present for right upper quadrant abdominal pain with nausea
-ER evaluation showing elevated LFT, normal bilirubin
-Ultrasound showing gallbladder which/tone with positive Hernandes sign
-Follow-up MRI MRCP showing changes of cholecystitis with questionable small choledocholithiasis
-Patient underwent laparoscopic cholecystectomy on 03/11.
-GI involved in care as intraoperatively concern of patient possibly having small and passed CBD stone.
-HIDA scan negative for any intra ductal abnormality.
-LFT has trended down nicely.
-GI/general surgery has signed off at this point.
-Discontinue further antibiotics.
2. Right lower extremity weakness
Right knee arthroscopic procedure earlier this year
-Per patient post arthroscopy patient developed new right lower extremity weakness and unable to use RLE
-Has been evaluated by primary surgeon testing has been negative in the past
-Patient waiting evaluation by different physician on Mar
-Continue PT/OT post operatively
3. Right lower back pain
-No radiation to groin. UA ruled out any hematuria
-Was already on antibiotic and less likely any other GI source
-Symptomatic care with toradol
Lovenox
Full code
Anticipated Discharge: Within 24 hours
Subjective/Interval History
-
Date of Service: March 15, 2024
Continues to have right upper quadrant and left lower back pain
Afebrile overnight
No other reported problems
Objective Data
-
Labs:
Laboratory Results
03/15/24
07:32
WBC 5.3
Hgb 12.7
Hct 38.3
Plt Count 238
Sodium 142
Potassium 4.0
Chloride 102
Carbon Dioxide 29
BUN 8
Creatinine 0.5 L
Glucose 98
Calcium 9.0
Total Bilirubin 0.6
AST 90 H
ALT 281 H
Alkaline Phosphatase 102
Vital Signs:
Vital Signs
Temp Pulse Resp BP Pulse Ox
98.7 F 89 18 141/84 93
03/15/24 08:05 03/15/24 08:05 03/15/24 08:05 03/15/24 08:05 03/15/24 08:05
I&O
03/14/24 03/15/24 03/16/24
06:59 06:59 06:59
Intake Total 860 / 860 300 / 300
Output Total 70 / 70
Balance 790 / 790 300 / 300
Review of Systems
-
Respiratory: Reports No Symptoms
Cardiac: Reports No Symptoms
Abdomen/GI: Reports No Symptoms
Physical Exam
-
General: No Apparent Distress and Comfortable
HEENT: Negative Oxygen
Respiratory: Clear to Auscultation
Cardiac: Regular Rhythm and S1/S2; Negative Murmur or Rub
GI: Soft and Nondistended
Musculoskeletal: No Edema
Neuro: Awake, Alert, Oriented, No Motor Deficits and Nonfocal/Grossly Intact
Psych: Calm
[2024-03-15 15:43] VITALS: BP 157/102
[2024-03-15 16:16] VITALS: BP 159/93; PULSE 95; O2SAT 97
[2024-03-15] MEDS: LOVENOX 40 MG SC (16:50)
[2024-03-15] MEDS: DILAUDID 0.5 MG IV (22:28)
[2024-03-15 23:21] VITALS: BP 127/72
[2024-03-16] MEDS: DILAUDID 0.5 MG IV (03:00)
[2024-03-16 07:53] VITALS: BP 129/87
[2024-03-16] MEDS: COLACE 100 MG PO ×2 (08:10→20:26)
[2024-03-16] MEDS: ZOFRAN 4 MG IV (08:45)
[2024-03-16] MEDS: TORADOL 15 MG IV ×3 (08:53→22:06)
--- NOTE | 2024-03-16 10:53 | W.PN.GS2 ---
Today's Communication / Plan
-
Check labs
NPO with sips
Assessment / Plan
-
53 yo female with acute cholecystitis and possible choledocholithiasis now POD #3 lap nicki
MRCP with ?sludge within the CBD and unable to cannulate CBD in OR for IOC suspicious for choledocholithiasis with partial obstruction; however, bilirubin wnl. Mild transaminitis
AFVSS
PAVEL with nonbilious SSF -removed
Nausea with clears and increasing pain overnight 03/15
--Check CBC/BMP/LFT --> may follow with imaging if abnormalities found
--Continue empiric abx
--Analgesics/antiemetics as needed
--Back down to sips of clears
--Medical care as per hospitalist
Subjective Data
-
Date of Service: March 16, 2024
Nausea with clears yesterday, increased pain med requirements overnight, otherwise no new issues; reports clear urine, is ambulating
Objective Data
-
Intake and Output
03/15/24 03/16/24 03/17/24
06:59 06:59 06:59
Intake Total 300 / 300 960 / 960
Balance 300 / 300 960 / 960
Intake:
Oral fluids 300 / 300 960 / 960
Other:
Number of approximated MODERATE 2 2
amounts of urine
Number of approximated LARGE 4
amounts of urine
Vital Signs
Temp Pulse Resp BP Pulse Ox
98.7 F 84 18 129/87 97
03/16/24 07:53 03/16/24 07:53 03/16/24 07:53 03/16/24 07:53 03/16/24 10:21
Calcium 9.0 mg/dl (8.4-10.2) 03/15/24 07:32
Total Bilirubin 0.6 mg/dl (0.2-1.3) 03/15/24 07:32
AST 90 U/L (14-36) H 03/15/24 07:32
ALT 281 U/L (0-35) H 03/15/24 07:32
Alkaline Phosphatase 102 U/L (38-126) 03/15/24 07:32
Total Protein 6.4 g/dl (6.3-8.2) 03/15/24 07:32
Albumin 3.8 g/dl (3.5-5.0) 03/15/24 07:32
Physical Exam
-
Gen: NAD
bd: soft, obese, incisions cdi with ecchymosis, drain site bandage cdi, mod-sev ttp to RUQ
[2024-03-16 11:24] LABS: Hematocrit 38.3 % (37.0-47.0); Hemoglobin 12.6 g/dL (12.0-16.0); Mean Corp Hgb Conc. 32.9 g/dL (33.0-37.0); Mean Corpuscular Hgb 30.6 pg (27.0-31.0); Mean Platelet Volume 8.9 fL (7.4-10.4); Platelet Count 246 10^3/uL (130-400); Red Blood Cell Count 4.12 10^6/uL (4.20-5.40); Red Cell Dist. Width 12.8 % (11.5-14.5); White Blood Cell Count 6.5 10^3/uL (4.8-10.8)
[2024-03-16 11:49] VITALS: BP 136/81
--- NOTE | 2024-03-16 11:56 | W.PN.GI.CBS2 ---
Addendum entered and electronically signed by Venkat Mcnamara MD 03/16/24 14:02:
I saw and examined the patient.
The REGULATORY SCIENTIST's note was reviewed and I agree with the note.
GI was reconsulted since patient continues to have right upper quadrant abdominal pain. Repeat LFTs trending down.
plan
Will get ultrasound abdomen
Repeat LFT in a.m.
If LFT persistently elevated and patient remains symptomatic we will consider EUS with Dr. Kay
Original Note:
Today's Communication / Plan
-
LFT's continued improvement
check follow up US
Assessment / Plan
-
Josseline is a 53-year-old female otherwise healthy comes in with biliary colic and hepatocellular injury underwent laparoscopic cholecystectomy on 03/11/2024 with an MRI with questionable common bile duct sludge versus stones with an IOC that was
unable to cannulate the distal CBD. Therefore GI was called by surgery Reviewed Lauren's operative findings which include tensely distended gallbladder with wall thickening and edema with numerous gallstones. Suspicious for choledocholithiasis
with partial obstruction. PAVEL drain left in postoperatively since a CBD obstruction with placed pressure on the cystic duct stump and increased risk for leak. Follow up HIDA neg but now with continued right sided pain.
# continued RUQ pain after nicki
-may be post-op pain vs other-- pain over were PAVEL taken out
-LFT's continued improvement
-check US to ensure no leak/duct dilation
-pt did have Questionable likely distal common bile duct stones versus sludge/obstruction Based on the MRI plus the inability to thread the wire into the distal common bile duct there was concern for some type of obstruction in the distal common
bile duct but recent HIDA Neg
- if any persistent issue or further rise in LFT's consider EUS
-reviewed with Dr. Dumont
# recent wt loss
# fatty liver on MRI
Subjective
Subjective
Date of Service: March 16, 2024
03/15 brown stool, on low fat diet-- asked to reassess for abdominal pain still 01/04 over are where PAVEL was removed
Objective
Data Reviewed
Laboratory Data:
Laboratory Results
03/16/24 10:57
Laboratory Results
PT 12.6 Sec (11.4-14.6) 03/10/24 11:45
INR 0.89 03/10/24 11:45
APTT 24.3 Sec (23.4-35.0) 03/10/24 11:45
Total Bilirubin 0.6 mg/dl (0.2-1.3) 03/15/24 07:32
AST 90 U/L (14-36) H 03/15/24 07:32
ALT 281 U/L (0-35) H 03/15/24 07:32
Alkaline Phosphatase 102 U/L (38-126) 03/15/24 07:32
Lipase 108 U/L (23-300) 03/14/24 07:24
Vital Signs and I&O:
Vital Signs
Temp Pulse Resp BP Pulse Ox
98.5 F 76 18 136/81 94
03/16/24 11:49 03/16/24 11:49 03/16/24 11:49 03/16/24 11:49 03/16/24 11:49
I&O
03/15/24 03/16/24 03/17/24
06:59 06:59 06:59
Intake Total 300 / 300 960 / 960
Balance 300 / 300 960 / 960
Physical Exam
Physical Exam
HEENT: Anicteric and Moist mucous membranes
Cardiology: Normal Sinus Rhythm
Pulmonary: Clear
GI: Soft, Non Distended, Tender (diffuse worse on right side over prior PAVEL drain site with some guarding ) and Other (surgical sites intact )
Extremities: No Edema and Other (right knee chronic pain )
Neuro: Non Focal
[2024-03-16 12:04] LABS: ALT (SGPT) 223 U/L (0-35); AST (SGOT) 68 U/L (14-36); Albumin 3.8 g/dl (3.5-5.0); Alkaline Phosphatase 97 U/L (38-126); Blood Urea Nitrogen 12 mg/dl (7-17); Calcium 9.3 mg/dl (8.4-10.2); Carbon Dioxide 28 mmol/L (22-30); Chloride 101 mmol/L (98-107); Estimated Creatinine Clearance 98 ml/min; Glucose 81 mg/dl (70-99); Potassium 4.1 mmol/L (3.5-5.1); Sodium 140 mmol/L (135-145); Total Bilirubin 0.4 mg/dl (0.2-1.3); Total Protein 6.3 g/dl (6.3-8.2); eGFR > 60.00
[2024-03-16 13:53] LABS: Lipase 122 U/L (23-300)
[2024-03-16 15:07] VITALS: BMI 29.2
--- NOTE | 2024-03-16 15:08 | W.PN.HOSP.TC ---
Addendum entered and electronically signed by Bryson Londono MD 03/16/24 17:38:
Abdominal ultrasound report still pending at 1730
Will need to hold discharge tonight.
Original Note:
Today's Communication/Plan
-
f/u US abd report
possible d/c later today
Assessment / Plan
Assessment / Plan
1. Acute cholecystitis
Questionable choledocholithiasis
Elevated liver enzyme
-Patient present for right upper quadrant abdominal pain with nausea
-ER evaluation showing elevated LFT, normal bilirubin
-Ultrasound showing gallbladder which/tone with positive Hernandes sign
-Follow-up MRI MRCP showing changes of cholecystitis with questionable small choledocholithiasis
-Patient underwent laparoscopic cholecystectomy on 03/11.
-GI involved in care as intraoperatively concern of patient possibly having small and passed CBD stone.
-HIDA scan negative for any intra ductal abnormality.
-LFT has trended down nicely.
-Patient continued to require pain medication overnight including IV Dilaudid. Discussed with GI and general surgery.
-A follow-up ultrasound has been ordered, if no significant findings patient can be discharged on regimen of pain medication
2. Right lower extremity weakness
Right knee arthroscopic procedure earlier this year
-Per patient post arthroscopy patient developed new right lower extremity weakness and unable to use RLE
-Has been evaluated by primary surgeon testing has been negative in the past
-Patient waiting evaluation by different physician on Mar
-Continue PT/OT post operatively
3. Right lower back pain
-No radiation to groin. UA ruled out any hematuria
-Was already on antibiotic and less likely any other GI source
-Symptomatic care with toradol
Lovenox
Full code
Anticipated Discharge: Within 24 hours
Subjective/Interval History
-
Date of Service: March 16, 2024
Continues to have significant right upper quadrant pain
Left lower back pain has resolved
No nausea or vomiting
Tolerating diet without any issues
Objective Data
-
Labs:
Laboratory Results
03/16/24
10:57
WBC 6.5
Hgb 12.6
Hct 38.3
Plt Count 246
Sodium 140
Potassium 4.1
Chloride 101
Carbon Dioxide 28
BUN 12
Creatinine 0.5 L
Glucose 81
Calcium 9.3
Total Bilirubin 0.4
AST 68 H
ALT 223 H
Alkaline Phosphatase 97
Vital Signs:
Vital Signs
Temp Pulse Resp BP Pulse Ox
98.5 F 76 18 136/81 94
03/16/24 11:49 03/16/24 11:49 03/16/24 11:49 03/16/24 11:49 03/16/24 11:49
I&O
03/15/24 03/16/24 03/17/24
06:59 06:59 06:59
Intake Total 300 / 300 960 / 960
Balance 300 / 300 960 / 960
Review of Systems
-
Respiratory: Reports No Symptoms
Cardiac: Reports No Symptoms
Abdomen/GI: Reports No Symptoms
Physical Exam
-
General: No Apparent Distress and Comfortable
HEENT: Negative Oxygen
Respiratory: Clear to Auscultation
Cardiac: Regular Rhythm and S1/S2; Negative Murmur or Rub
GI: Soft, Nondistended and Tender (RUQ)
Musculoskeletal: No Edema
Neuro: Awake, Alert, Oriented, No Motor Deficits and Nonfocal/Grossly Intact
Psych: Calm
[2024-03-16 15:15] VITALS: BP 154/97
[2024-03-16] MEDS: LOVENOX 40 MG SC (17:26)
[2024-03-16 23:02] VITALS: BP 140/87
[2024-03-17] MEDS: TORADOL 15 MG IV ×2 (04:06→10:56)
[2024-03-17 07:15] VITALS: BP 110/77
[2024-03-17] MEDS: COLACE 100 MG PO (08:25)
[2024-03-17 08:45] LABS: ALT (SGPT) 205 U/L (0-35); AST (SGOT) 56 U/L (14-36); Alkaline Phosphatase 107 U/L (38-126); Total Bilirubin 0.4 mg/dl (0.2-1.3); Total Protein 6.4 g/dl (6.3-8.2)
--- NOTE | 2024-03-17 09:55 | W.PN.GS2 ---
Today's Communication / Plan
-
`
Assessment / Plan
-
Assessment: 53 yo female with acute cholecystitis and possible choledocholithiasis
POD #6 lap nicki
MRCP with ?sludge within the CBD and unable to cannulate CBD in OR for IOC suspicious for choledocholithiasis with partial obstruction; however, bilirubin wnl. Mild transaminitis
Follow-up ultrasound yesterday reviewed. Postoperative fluid in surgical bed likely reactive in nature. Bile duct dilation stable
AFVSS
Bilirubin remains normal and clinically improving
Plan: Okay for discharge from surgical standpoint
No clinical signs suggestive of biliary obstruction; may be visualized choledochocele on IOC or flushing out biliary sludge
Outpatient surgical follow-up in 2 weeks
Consider outpatient GI follow-up for fatty liver as well as potential future imaging of biliary tree depending on clinical recovery over the next few weeks (repeat outpatient MRI or outpatient EUS)
Subjective Data
-
Date of Service: March 17, 2024
Patient seen and examined in follow-up.
Feeling better this morning than the past few days.
Ate breakfast
No further nausea
pain control improved with Toradol
Objective Data
-
Intake and Output
03/16/24 03/17/24 03/18/24
06:59 06:59 06:59
Intake Total 960 / 960 720 / 720
Balance 960 / 960 720 / 720
Intake:
Oral fluids 960 / 960 720 / 720
Other:
Number of approximated MODERATE 2 4
amounts of urine
Vital Signs
Temp Pulse Resp BP Pulse Ox
98.0 F 79 16 110/77 94
03/17/24 07:15 03/17/24 07:15 03/17/24 07:15 03/17/24 07:15 03/17/24 07:15
Lab Results
03/16/24 10:57
03/16/24 10:57
Calcium 9.3 mg/dl (8.4-10.2) 03/16/24 10:57
Total Bilirubin 0.4 mg/dl (0.2-1.3) 03/17/24 07:00
Direct Bilirubin 0.0 mg/dl (0.0-0.4) 03/17/24 07:00
AST 56 U/L (14-36) H 03/17/24 07:00
ALT 205 U/L (0-35) H 03/17/24 07:00
Alkaline Phosphatase 107 U/L (38-126) 03/17/24 07:00
Total Protein 6.4 g/dl (6.3-8.2) 03/17/24 07:00
Albumin 4.0 g/dl (3.5-5.0) 03/17/24 07:00
Physical Exam
-
NAD AAOx3
ABD: Soft, nondistended, mild tenderness palpation right side, no rebound rigidity or guarding
Surgical sites with glue dressings
Old drain site clean and dry with scab
--- NOTE | 2024-03-17 10:35 | CM ---
Late note from 03/16/2021: LINDA met with Josseline late in the day to discuss discharge to home. She advised that she will go home with her children and denies needs at this time.
Plan: Discharge to home with no anticipated needs.
--- NOTE | 2024-03-17 11:13 | CM ---
LINDA met with Josseline this morning to discuss discharge to home. Her son will pick her up today.
Plan: Discharge to home with family. No needs.
[2024-03-17 11:26] VITALS: BP 140/88
--- NOTE | 2024-03-17 11:56 | W.PN.HOSP.TC ---
Today's Communication/Plan
-
d/c home
Assessment / Plan
Assessment / Plan
1. Acute cholecystitis
Questionable choledocholithiasis
Elevated liver enzyme
-Patient present for right upper quadrant abdominal pain with nausea
-ER evaluation showing elevated LFT, normal bilirubin
-Ultrasound showing gallbladder which/tone with positive Hernandes sign
-Follow-up MRI MRCP showing changes of cholecystitis with questionable small choledocholithiasis
-Patient underwent laparoscopic cholecystectomy on 03/11.
-GI involved in care as intraoperatively concern of patient possibly having small and passed CBD stone.
-HIDA scan negative for any intra ductal abnormality.
-LFT has trended down nicely.
-Repeat ultrasound did not show any new abnormality except postoperative changes of cholecystectomy
-Patient symptoms much improved with use of Toradol, recommended to continue short course of NSAIDs postdischarge
2. Right lower extremity weakness
Right knee arthroscopic procedure earlier this year
-Per patient post arthroscopy patient developed new right lower extremity weakness and unable to use RLE
-Has been evaluated by primary surgeon testing has been negative in the past
-Patient waiting evaluation by different physician on Mar
-Continue PT/OT post operatively
3. Right lower back pain
-No radiation to groin. UA ruled out any hematuria
-Was already on antibiotic and less likely any other GI source
-Symptomatic care with toradol
Lovenox
Full code
Anticipated Discharge: Today
Subjective/Interval History
-
Date of Service: March 17, 2024
No issues overnight
pain is significantly better
Objective Data
-
Labs:
Laboratory Results
03/17/24
07:00
Total Bilirubin 0.4
AST 56 H
ALT 205 H
Alkaline Phosphatase 107
Vital Signs:
Vital Signs
Temp Pulse Resp BP Pulse Ox
98.3 F 85 18 140/88 95
03/17/24 11:26 03/17/24 11:26 03/17/24 11:26 03/17/24 11:26 03/17/24 11:26
I&O
03/16/24 03/17/24 03/18/24
06:59 06:59 06:59
Intake Total 960 / 960 720 / 720
Balance 960 / 960 720 / 720
Review of Systems
-
Respiratory: Reports No Symptoms
Cardiac: Reports No Symptoms
Abdomen/GI: Reports No Symptoms
Physical Exam
-
General: No Apparent Distress and Comfortable
HEENT: Negative Oxygen
Respiratory: Clear to Auscultation
Cardiac: Regular Rhythm and S1/S2; Negative Murmur or Rub
GI: Soft, Nondistended and Tender (RUQ)
Musculoskeletal: No Edema
Neuro: Awake, Alert, Oriented, No Motor Deficits and Nonfocal/Grossly Intact
Psych: Calm
--- NOTE | 2024-03-18 15:56 | W.DCSUMMARY ---
Discharge Summary
Discharge Data
Date of Admission: 03/10/24
Date of Discharge: 03/17/24
-
Pending Results: No
Hospital Course
Discharging Physician : Dr Bryson Londono
Disposition : Home
Primary care physician : Mc Chaparro MD
Principal Discharge diagnosis :
Acute cholecystitis
Acute transaminitis
Chronic Discharge diagnosis :
Right lower extremity weakness
Right knee arthroscopic procedure
Right lower back pain
Hospital Course :
Patient is a 53-year-old female with no mentioned past medical history came to ER for having epigastric and right upper quadrant abdominal pain. Patient had associated nausea and vomiting episodes. Patient had an ultrasound of abdomen in ER
showing biliary sludge and cholelithiasis with positive sonographic Hernandes sign. General surgery was consulted and requested a follow-up MRI/MRCP which also showed changes of cholecystitis with questionable intrabiliary stone. Patient was taken to
the OR and had laparoscopic cholecystectomy, intraoperative cholangiogram was difficult to obtain with concern of possible obstruction. Postprocedure gastroenterology was involved in care for further help and HIDA scan was recommended. HIDA scan
did not show any biliary ductal stone. Patient had slow recovery from laparoscopic cholecystectomy and required IV pain medication support for 5 days. Repeat ultrasound was done on postop day 5 which showed changes of postoperative cholecystectomy
only. Patient had better improvement in symptoms/pain control with NSAIDs. Post medical improvement patient was discharged to home at this point.
Important imaging findings :
None
Procedure findings :
None
Discharge Plan
-
Patient Disposition: Home (Routine Discharge)
Discharge Diagnosis/Procedures: Acute calculus cholecystitis, possible choledocholithiasis. Laparoscopic cholecystectomy with intraoperative cholangiogram
Condition: Good
Diet: Low Fat
Additional Diets: If you have loose stools after surgery, avoid oily greasy foods
Activity: No strenuous activity
Additional Activity: Do not lift over 15 lbs over the next 2-3 weeks
Bathing Restrictions: OK to Shower
Wound Care: Allow the glue over your incisions to flake off on its own in 2-3 weeks. Beneath the glue are dissolving sutures. Cover the site where your drain was with clean dry gauze and change dressing daily and as needed if soiled. Ok to remove
for showers. Ok to leave dressing off once site forms scab and drainage no longer noted.
Activity Restrictions/Additional Instructions:
�Giuseppe Aguialr MD [facility] General Surgery
[facility]
[address], [address]
[place] [address]
[phone]
Post-Operative Instructions for Gallbladder Surgery
The incision sites are sealed with a surgical glue dressing.� It is safe to shower at any time after surgery when the glue is dry.� Let shower water run over the incisions and then pat dry.
Glue dressing typically peels off in 2-3 weeks.
Abdominal/incisional pain and discomfort, shoulder/scapular pain, bloating, and mild nausea, as well as bruising/stiffness and swelling at the incision sites are common after surgery.� If felt to be excessive, notify us.
Please start postoperative pain management using over the counter medications such as Tylenol and Ibuprofen, per instructions on the bottle, as long as there are no medical reasons why you cannot take these medications.
Ice the incisions sites for 20 minutes every hour or so to help with postoperative incisional pain and reduce postoperative surgical site swelling.� Take care NOT to get an ice burn on the skin surface.
A warm heating pad is often helpful to alleviate shoulder/scapular back pains after laparoscopic procedures.� This pain typically dissipates 24-72hrs post op.
Transition to a low fat diet as tolerated after surgery if not experiencing postoperative nausea or significant bloating/distention.� Some fatty food intolerance may occur shortly after surgery (cramps,bloating, nausea,diarrhea with fat intake).
Constipation is common following surgery and postoperative narcotic use.� May use a stool softener such as Colace (100 mg 2x day) to prevent constipation
If no BM 24hrs after surgery, recommend starting daily Miralax
If no BM in 24-48hrs after starting Miralax --> recommend then using a dose of magnesium citrate or milk of magnesia with a Senokot tablet to help alleviate post operative constipation as long as there is no nausea/vomiting and passing gas.
Resume all preoperative medications as prescribed, unless directed otherwise.
Do not drive or drink alcohol for 24 hrs after having anesthesia or while taking narcotic pain medications.
Resume regular daily light activities, such as walking, standing and going up/down stairs as tolerated within 24hrs of surgery.� Please refrain from lifting over 20 lbs or strenuous exercise until postoperative follow up visit &/or approximately
3-4 weeks.�
Call the office with a fever above 101� F, nausea with vomiting, severe abdominal pain, yellowing of skin or eyes, spreading redness and drainage from incision sites or with any concerns/questions.
If not arranged prior to surgery, please call the office to schedule or confirm your 10-14 day postoperative surgical follow-up office visit with Dr. Aguilar.
Referrals:
Giuspepe Aguilar MD [Active] - in two to four weeks
Zulema Reynolds DO [Active] - (OP follow up for fatty liver noted on imaging. Call [phone] to schedule )
Mc Chaparro MD [Family Provider] - in one week
Prescriptions:
New
oxycodone 10 mg Tablet
10 mg PO Q4HPRN PRN (Reason: sev pain) Qty: 10 0RF
ibuprofen 800 mg tablet
800 mg PO TID PRN (Reason: Mod sev pain) Qty: 30 0RF
Rx Instructions:
DONT TAKE FOR MORE THAN 3 DAYS
Continued
calcium carbonate [Tums] 200 mg calcium (500 mg) Tablet,Chewable
400 mg PO DAILYPRN PRN (Reason: indigestion)
multivit with min-folic acid 80 mcg Tablet,Chewable
1 tab PO DAILY
Discontinued
Advil PM 200-38 mg Tablet
1 cap PO HS
Discharge Orders:
Discharge Patient (As Directed); Ordered 03/17/24
Ordered By: Bryson Londono
Discharge Date and Time
Discharge Date/Time: 03/17/24 13:00
Print Language: [facility]
== END 2024-03-17 13:00 | disposition home or self-care (01) | DRG 419 ==
LOC: 4 EAST ACU 15:45
PROVIDERS: Emergency Medicine; Internal Medicine Gastroenterology; Registered Nurse; Surgery; ADMITTING PHYSICIAN Hospitalist; ATTENDING PHYSICIAN Hospitalist; CONSULT PHYSICIAN Internal Medicine; CONSULT PHYSICIAN Physical Medicine & Rehabilitation; CONSULT PHYSICIAN Surgery; EMERGENCY PHYSICIAN Student in an Organized Health Care Education/Training Program; FAMILY PHYSICIAN Family Medicine
PROC: 0FT44ZZ Resection of Gallbladder, Percutaneous Endoscopic Approach (ICD-10-PCS; 2024-03-11)
PROC: BF111ZZ Fluoroscopy of Biliary and Pancreatic Ducts using Low Osmolar Contrast (ICD-10-PCS; 2024-03-11)
DX: K80.63 Calculus of gallbladder and bile duct with acute cholecystitis with obstruction (principal); K21.9 Gastro-esophageal reflux disease without esophagitis; K76.0 Fatty (change of) liver, not elsewhere classified; I34.1 Nonrheumatic mitral (valve) prolapse; Z90.49 Acquired absence of other specified parts of digestive tract; J45.909 Unspecified asthma, uncomplicated; R79.89 Other specified abnormal findings of blood chemistry; R53.1 Weakness; M54.50 Low back pain, unspecified
CPT/HCPCS: 88304; 74183; 74300; 76000; 76700; 76705; 78226; 80048; 80053; 80076; 81003; 83690; 84484; 85025; 85027; 85610; 85730; 93005; 96374; 96375; 97116; 97162; 97166; 99285; A4300; A9537; A9575; J1610